=== PATIENT | female | born 1945 | race Caucasian/White ===

== ENCOUNTER → 2018-09-08 | Outpatient (CLI) | payer MEDICARE, SELFPAY ==
[2018-09-08 12:38] LABS: Cholesterol 175 mg/dL (200); High Density Lipoprotein 69 mg/dL; Triglycerides 88 mg/dL; Very Low Density Lipoprotein 18 mg/dL (5-40)
== END | disposition home or self-care (01) ==
LOC: LAB.FUTURE 08:09
PROVIDERS: Family Provider Family Medicine; PCP Family Medicine; Visit Provider Family Medicine
DX: E78.5 Hyperlipidemia, unspecified (principal)
CPT/HCPCS: 36415; 80061

== ENCOUNTER 2020-02-23 09:00 | Outpatient (RCR) | payer MEDICARE, SELFPAY | END 2020-02-23 23:59 | LOC: IMMUN 09:00 | PROVIDERS: PCP Family Medicine; Visit Provider Family Medicine | DX: Z23 Encounter for immunization (principal) | CPT/HCPCS: 0011A; 0012A; 91301 ==

== ENCOUNTER → 2020-11-28 07:49 | Outpatient (CLI) | payer MEDICARE, SELFPAY ==
--- NOTE | 2020-11-28 08:05 | VDLE_ITS ---
Reason For Study: chronic venous insufficiency RIGHT CFV is compressible, spontaneous, phasic, competent and demonstrates normal augmentation. FV is compressible, spontaneous, phasic, competent and demonstrates normal augmentation. POP V is compressible, spontaneous, phasic, competent and demonstrates normal augmentation. T/P Trunk is compressible. PTV is compressible. RT PerV is compressible. GSV and SSV are occluded S/P Venoseal. Soleus V is noncompressible. Procedure This is a venous duplex using B-mode, color flow and spectral Doppler. Exam performed in department. The exam was abbreviated due to the COVID 19 protocol. The exam was diagnostic. A preliminary report was called and/or faxed to Dr. Benitez. VL/Venous Duplex US, Unilateral Interpretation Summary Acute deep vein thrombosis is noted in the right soleus vein. The remainder of the right lower extremity deep venous system is patent and compressible. Valvular competence ap pears intact within the proximal deep venous system on the right . The right great saphenous vein a nd small saphenous vein are occluded, consistent with a recent endovenous ablation procedure. Ordering Physician: Julián Benitez Performed By: Jori Walden RVT
== END ==
PROVIDERS: PCP Family Medicine; Referring Provider Surgery; Visit Provider Surgery
DX: M79.661 Pain in right lower leg (principal)
CPT/HCPCS: 93971

== ENCOUNTER → 2020-12-07 14:02 | Outpatient (CLI) | payer MEDICARE, SELFPAY ==
--- NOTE | 2020-12-07 14:06 | VDLE_ITS ---
Reason For Study: DVT (RLE SOLEUS V) RIGHT CFV is compressible, spontaneous, phasic, competent and demonstrates normal augmentation. FV is compressible, spontaneous, phasic, competent and demonstrates normal augmentation. POP V is compressible, spontaneous, phasic, competent and demonstrates normal augmentation. T/P Trunk is compressible. PTV is compressible. RT PerV is compressible. GSV and SSV (seen in image #15 & #16) are occluded S/P Venoseal. Soleus V appears compressible. Procedure This is a venous duplex using B-mode, color flow and spectral Doppler. Exam performed in department. The exam was diagnostic. A preliminary report was called and/or faxed to Dr. Benitez @ 2:50 pm. VL/Venous Duplex US, Unilateral Interpretation Summary Deep veins of the right lower extremity are patent and compressible segmentally . There is no evidence of right lower extremity deep vein thrombosis. Valvular competence jael ears intact within the proximal deep venous system on the right . The right great saphenous vein a nd small saphenous vein are occluded, consistent with a recent VenaSeal closure procedure. Ordering Physician: Julián Benitez Referring Physician: Frederick Jose Performed By: Lidia Cooper, RYLAN, RVT
== END ==
PROVIDERS: PCP Family Medicine; Referring Provider Surgery; Visit Provider Surgery
DX: I82.4Z1 Acute embolism and thrombosis of unspecified deep veins of right distal lower extremity (principal)
CPT/HCPCS: 93971

== ENCOUNTER → 2021-10-20 | Outpatient (CLI) | payer MEDICARE, SELFPAY ==
[2021-10-20 15:11] LABS: Absolute Lymphocyte Count 1.89 X10^3/uL (0.83-4.51); Absolute Neutrophil Count 3.8 X10^3/uL (2.0-7.7); Basophil# 0.05 X10^3/uL; Basophil% 0.8 % (0-1); Eosinophil# 0.09 X10^3/uL; Eosinophils% 1.4 % (0-5); Hematocrit 41.6 % (37-47); Hemoglobin 13.1 g/dL (12.0-15.0); Lymphocyte # 1.89 X10^3/ul (0.83-4.51); Mean Corp Hgb Conc 31.5 g/dL (32-36); Mean Corpuscular Hgb 28.5 pg (27.0-32.0); Mean Corpuscular Volume 90.6 fL (81-99); Mean Platelet Vol. 10.8 fl (6.2-12.0); Monocyte# 0.66 X10^3/uL; Monocyte% 10.1 % (0-10); NRBC Flagged by Analyzer 0 % (0-5); Neutrophil # 3.82 X10^3/uL (2.7-7.7); Neutrophil % 58.5 % (47-70); Platelet Count 350 K/mm3 (150-450); RBC Distribution Width CV 12.4 % (11.6-14.6); RBC Distribution Width SD 41.1 fl (35.1-43.9); Red Blood Count 4.59 M/mm3 (4.2-5.4); White Blood Count 6.5 K/mm3 (4.4-11.0)
[2021-10-20 15:33] LABS: ALB/GLOB Ratio 1.1 RATIO (0.9-2.4); AST(SGOT) 16 U/L (15-37); Alanine Aminotransfer ALT/SGPT 21 U/L (13-56); Albumin, Serum 3.8 g/dL (3.2-5.0); Alkaline Phosphatase 89 U/L (45-117); Anion Gap 5 (5-15); BUN 12 mg/dL (7-18); BUN/Creat Ratio 14.8 RATIO (10-20); Calcium,Total 8.7 mg/dL (8.5-10.1); Chloride 106 mmol/L (98-107); Cholesterol 202 mg/dL (200); Creatinine, Serum 0.81 mg/dL (0.55-1.02); EST Glomerular Filtration Rate 73 mL/min (>60); Est Glom Filt Rate - Afr Amer 88 mL/min (>60); Globulin 3.5 g/dL (2.2-4.2); Glucose 102 mg/dL (74-106); High Density Lipoprotein 87 mg/dL; Potassium 4.2 mmol/L (3.5-5.1); Protein, Total 7.3 g/dL (6.4-8.2); Sodium Level 139 mmol/L (136-145); Triglycerides 98 mg/dL; Very Low Density Lipoprotein 20 mg/dL (5-40)
== END | disposition home or self-care (01) ==
LOC: LAB 14:42
PROVIDERS: PCP Family Medicine; Visit Provider Family Medicine
DX: Z00.00 Encounter for general adult medical examination without abnormal findings (principal); E78.5 Hyperlipidemia, unspecified; G43.109 Migraine with aura, not intractable, without status migrainosus
CPT/HCPCS: 36415; 80053; 80061; 85025

== ENCOUNTER 2021-10-28 18:09 | Emergency (ER) | payer MEDICARE, SELFPAY ==
[2021-10-28 18:10] VITALS: BP 171/89; PULSE 63; RESP 16; TEMP 36.7; O2SAT 100; BMI 22.3
[2021-10-28 18:33] VITALS: BP 184/93; PULSE 93; RESP 12; O2SAT 98
[2021-10-28 18:34] VITALS: BP 184/93
--- NOTE | 2021-10-28 18:45 | EDS_ITS ---
HPI History of Present Illness Chief Complaint: Hypertension Informant: patient Narrative Narrative: Patient comes in complaining of blood pressure being elevated today. She is got readings anywhere from 148 to about 177. Triage note says headache. But she states she does not have a headache. She feels like she has a little bit of congestion and allergies. No headache. No visual changes. No numbness tingling weakness. No nausea vomiting chest pain shortness of breath or lightheadedness. She feels normal state of health. She actually went out for a walk with the dogs and felt normally there. She does not have a history of blood pressure. However, she states that she is kind of been off of a diet recently. She switched to an extremely healthy diet several years ago when her had a heart attack. She has been cheating recently. She has had cupcake. She had glass of wine. She was eating salty foods for the last couple days. These are not things that she normally eats. She was just seen by her primary physician and had blood work done within the last 2 weeks. She states she feels fine but she was concerned that she got those blood pressure readings. She has no chronic medical conditions No medications that she takes No allergies No recent surgeries Lives with non-smoker [facility] Medical History no medical history Allergy/AdvReac Type Severity Reaction Status Date / Time No Known Allergies Allergy Verified 10/28/21 18:14 Social History Smoking Status: Never smoker ROS ROS ED Constitutional Constitutional ED: Denies chills or fever(s) Eyes Eyes: Denies blurry vision, change in vision or diplopia ENT ENT ED: Denies rhinorrhea or sore throat Cardiovascular Cardiovascular: Denies chest pain or racing heartbeat Respiratory/Chest Respiratory/Chest: Denies cough or dyspnea Gastrointestinal Gastrointestinal: Denies nausea or vomiting Genitourinary Genitourinary ED: Denies dysuria or urinary frequency Musculoskeletal Musculoskeletal: Denies arthralgias or myalgias Integumentary Denies rash Neurologic Neurologic: Denies headache(s), paresthesias or weakness Endocrine Endocrinology: Denies polyuria Hematologic/Lymphatic Hematologic/Lymphatic: Denies easy bleeding or easy bruising Allergic/Immunologic Allergic/Immunologic ED: Denies urticaria EXAM Physical Exam Const Vital Signs: 10/28/21 18:10 10/28/21 18:33 10/28/21 18:33 Temperature 98.1 F Temperature Source Temporal Pulse Rate 63 93 Respiratory Rate 16 12 Respiratory Effort Normal Non-Labored Respiratory Pattern Normal Blood Pressure 171/89 H 184/93 H Blood Pressure Mean 116 123 Pulse Ox 100 98 Oxygen Delivery Method Room Air 10/28/21 18:34 Temperature Temperature Source Pulse Rate Respiratory Rate Respiratory Effort Respiratory Pattern Blood Pressure 184/93 H Blood Pressure Mean 123 Pulse Ox Oxygen Delivery Method Positive well nourished and well developed General Appearance ED: well developed and NAD; Negative for pallor HEENT Reports moist mucous membranes HEENT Narrative: No temporal artery tenderness. Eyes PERRL and EOMs intact bilaterally General Eye ED: Negative for scleral icterus Neck supple and no JVD Chest Wall inspection of chest normal Resp normal respiratory effort and clear to auscultation bilaterally Auscultation: Negative for rales Cardio regular rate, regular rhythm and no murmurs GI normal to inspection, nondistended, normoactive bowel sounds and non-tender GI Narrative: I do not hear any bruits in the abdomen. Palpation: soft Back/Spine no CVA tenderness Extremity normal to inspection General Extremety ED: Negative for edema or tenderness General Extremity: Negative for edema Neuro oriented x3 and no sensory deficits noted Motor Exam: strength 5/5 throughout Psych mental status grossly normal Skin no rashes or lesions noted General Skin Exam: Negative for jaundice or pallor MDM MDM MDM Narrative Medical decision making narrative: Patient has asymptomatic hypertension readings. This may be related to her diet and activity. I explained that with her elevations and lack of symptoms she really does not need acute treatment. Statistically she has about a 30 to 35% chance of needing therapy. Considering her age, I think this might be slightly higher. But this is a new phenomenon. I do not think we need to acutely treat this. She will get a blood pressure cuff and check it twice a day and follow-up with her physician. I was able to access her blood work that was done 8 days ago. She had essentially normal CBC electrolytes. Liver function tests were normal other than mild elevation in the bilirubin to 1.2. She also has some slight elevation of her total cholesterol but HDL was actually quite high. I do not think blood work needs to be repeated today. I think it is very important that she gets follow-up. I think the most important part of this visit is repeat checks at home and follow-up this coming week. If she develops any specific symptoms which we talked about she should return. Discharge Plan Triage Chief Complaint: Hypertension ED Provider: Junito Hayes Dx/Rx/DC Orders Clinical Impression: Elevated blood pressure reading Instructions: ED Hypertension, To Be Confirmed Primary Care Provider: Frederick Jose Referrals: Frederick Jose MD [Primary Care Provider] - 3-5 Days Disposition Disposition: Home, Self Care
[2021-10-28 19:02] VITALS: BP 174/96; PULSE 58; RESP 14
== END 2021-10-28 19:03 | disposition home or self-care (01) ==
PROVIDERS: Emergency Provider Emergency Medicine; PCP Family Medicine; Visit Provider Emergency Medicine
DX: R03.0 Elevated blood-pressure reading, without diagnosis of hypertension (principal)
CPT/HCPCS: 99282

== ENCOUNTER 2022-05-04 14:30 | Outpatient (RCR) | payer MEDICARE, SELFPAY ==
--- NOTE | 2022-03-22 12:59 | HP.PTEVAL_ITS ---
Patient's Visit Information RAIMUNDO BOBBY is a 76 year old F referred to Physical Therapy by GERSON Freedman with a diagnosis of STRAIN OF UNSPECIFIED MUSCLE AND TENDON ,LEFT LEG, EFFUSION LEFT KNEE. Date of Evaluation: 03/22/22 Physical Therapist: Shelton Flynn, PT, Cert MDT, OCS - Visit Plan Frequency: 2x /Week Duration: 4 Weeks Plan: PT INTERVETIONS ROM/FLEXABLITY ,QUADS/HAMS/HIPS STRENGHENING ,FUNCTIONAL STRENGTHENING ,AND MODALTIES PRN - Subjective This 76 y/o female presents to physical therapy left knee pain. Patient developed insidious onset of left knee pain ,no injury. Maybe inactivity. Patient seen DR laura Steriod pack and and x-rays showed mod arthrosis posterior. Patient has h/o THR 2011. Patient located global patella. Described as ache and sharp pain. Aggravating factors walking ,kneeling ,stairs squatting. Alleviating factors rest and sitting. Patient had edema in knee but improving. Initially ,had difficulty with sleeping but better now. Denies paresthesia/tingling. Patient pain affects QOL and function walking/standing and ADLS'. Goals no pain. SOCIAL: . VOCATION: retired Teacher - Pain Left Knee Pain Intensity (Out of 10): 2 Pain Intensity Range: 10 - Objective POSTURE: mild forward posture. GAIT: reciprocal pattern. PALAPATION: tender patella. EDEMA: absent. AROM: 10-135 degrees supine knee flexion crepitus patella. MMT( peak force) : quads 19.7 ,hams 21.2 ,hip flexion 18.8,hip abduction 13.3. STAIRS: one step at time with rails descending. - Special Tests L Knee Deandre - Meniscus: Negative L Knee Apley - Meniscus: Negative L Knee Valgus - MCL: Negative L Knee Varus - LCL: Negative L Knee Patellar Apprehension - PFS: Positive - Balance/Special Test Scores Lower Extremity Functional Score: 33 - Goals Goal 1:: Patient to be I with HEP for knee Goal Time Frame: 4-6 Weeks Goal 2:: Patient to demonstrate by 50% or > to improve function and walking with less pain Goal Time Frame: 4-6 Weeks Goal 3:: Patient improve extension by 5 degrees to improve function Goal Time Frame: 4-6 Weeks Goal 4:: Patient to improve peak force of quads/hams/hip by 5 points to improve function Goal Time Frame: 4-6 Weeks Goal 5:: Patient to improve LFES score by 5 points or > to improve QOL Goal Time Frame: 4-6 Weeks - Rehabilitation Potential Physical Therapy Diagnosis: Patient has left knee pain with with mod arthrosis posterior knee patella with decrease ROM ,weakness and pain with functional activities. thus benefit from skilled PT Rehabilitation Potential: Good - Anticipated Interventions Patient/Client Instruction: Educate patient on: Condition, Plan of Care For the Purpose of:: To decrease pain, To decrease swelling/inflammation, To improve nutrient delivery to tissue, To increase oxygenation perfusion, To improve muscle performance and motor function, To increase tolerance to activity/condition/position, To improve ability of physical actions for home/community/work/leisure, To improve health of tissue, To decrease soft tissue restriction, To increase flexibility/ROM, To prevent re-injury Therapeutic Exercise to Include: Strength training, Flexibilty training, Passive ROM, Active ROM For the Purpose of:: To decrease pain, To increase ROM, To improve muscle performance and motor function, To increase tolerance to activity/co ndition/position, To improve ability of physical actions for home/community/work/leisure, To improve health of tissue, To decrease soft tissue restriction, To increase flexibility/ROM, To improve endurance TENS: Yes IF ES: Yes Cryotherapy (ice pack, ice massage): Yes Thermo therapy (hot pack): Yes Ultrasound (thermal/non thermal): Yes For the Purpose of:: To decrease pain, To increase ROM, To improve nutrient delivery to tissue, To increase oxygenation perfusion, To improve health of tissue, To decrease soft tissue restriction Thank you for the opportunity to evaluate your patient. For Medicare and Medicare HMO plans, please review the plan of care and approve it. It will need to be FAXED BACK to us at [phone] for Medicare purposes. For Medicare only, by signing this I certify the plan of care. Please let me know if there are questions or concerns regarding this plan of care. Physician Signature: Date:
--- NOTE | 2022-05-04 15:02 | HP.PTDCSUM ---
It has been my pleasure to treat RAIMUNDO BOBBY referred by GERSON Freedman, with the diagnosis of STRAIN OF UNSPECIFIED MUSCLE AND TENDON ,LEFT LEG, EFFUSION LEFT KNEE for a total of 11 visit(s). Discharge Date: 05/04/22 Please see the following information for a summary of their discharge status. Subjective: Ready for d/c Left Knee Pain Intensity (Out of 10): 0 % Improvement: 80 Objective/Function: POSTURE: WFL. GAIT: ambulates with knee slight flexes reciprocal. AROM: 3-130 DEGFREES. MMT: 4/5 QUADS/HAMS Goal 1:: Patient to be I with HEP for knee Goal Progress: Goal Met Goal 2:: Patient to demonstrate by 50% or > to improve function and walking with less pain Goal Progress: Goal Met Goal 3:: Patient improve extension by 5 degrees to improve function Goal Progress: Goal Met Goal 4:: Patient to improve peak force of quads/hams/hip by 5 points to improve function Goal 5:: Patient to improve LFES score by 5 points or > to improve QOL Goal Progress: Goal Met Plan: D/C Discharge Comments: HEP If there are questions or concerns regarding this patient's physical therapy, please feel free to call me at [phone]. Thank you for the referral of this patient. Sincerely, Shelton Flynn PT, Cert MDT, OCS Balance/Gait/Functional tests - Balance/Special Test Scores Lower Extremity Functional Score: 60
== END 2022-05-04 19:00 | disposition home or self-care (01) ==
LOC: PT 14:30
PROVIDERS: PCP Family Medicine; Referring Provider Physician Assistant Surgical; Visit Provider Physician Assistant Surgical
DX: S86.912D Strain of unspecified muscle(s) and tendon(s) at lower leg level, left leg, subsequent encounter
CPT/HCPCS: 97110; 97162

== ENCOUNTER → 2024-01-30 | Outpatient (CLI) | payer MEDICARE, SELFPAY ==
[2024-01-30 17:37] LABS: Absolute Lymphocyte Count 1.65 X10^3/uL (0.83-4.51); Absolute Neutrophil Count 4.2 X10^3/uL (2.0-7.7); Basophil# 0.05 X10^3/uL; Basophil% 0.8 % (0-1); Eosinophil# 0.11 X10^3/uL; Eosinophils% 1.7 % (0-5); Hemoglobin 12.8 g/dL (12.0-15.0); Lymphocyte # 1.65 X10^3/ul (0.83-4.51); Lymphocyte % 25.1 % (19-41); Mean Corpuscular Hgb 28.4 pg (27.0-32.0); Mean Corpuscular Volume 88.9 fL (81-99); Mean Platelet Vol. 11.6 fl (6.2-12.0); Monocyte# 0.59 X10^3/uL; NRBC Flagged by Analyzer 0 % (0-5); Neutrophil # 4.16 X10^3/uL (2.7-7.7); Neutrophil % 63.1 % (47-70); Platelet Count 314 K/mm3 (150-450); RBC Distribution Width CV 12.5 % (11.6-14.6); RBC Distribution Width SD 41.1 fl (35.1-43.9); White Blood Count 6.6 K/mm3 (4.4-11.0)
[2024-01-30 17:57] LABS: ALB/GLOB Ratio 0.9 RATIO (0.9-2.4); AST(SGOT) 17 U/L (15-37); Alanine Aminotransfer ALT/SGPT 17 U/L (13-56); Albumin, Serum 3.5 g/dL (3.2-5.0); Alkaline Phosphatase 101 U/L (45-117); Anion Gap 3 (5-15); BUN 16 mg/dL (7-18); CRP < 2.90 mg/L (0.0-3.0); Calcium,Total 9.3 mg/dL (8.5-10.1); Chloride 106 mmol/L (98-107); Cholesterol 206 mg/dL (200); Creatinine, Serum 1.23 mg/dL (0.55-1.02); EST Glomerular Filtration Rate 45 mL/min (>60); Est Glom Filt Rate - Afr Amer 54 mL/min (>60); Globulin 3.8 g/dL (2.2-4.2); Glucose 99 mg/dL (74-106); High Density Lipoprotein 95 mg/dL; Potassium 3.2 mmol/L (3.5-5.1); Protein, Total 7.3 g/dL (6.4-8.2); Sodium Level 140 mmol/L (136-145); Triglycerides 58 mg/dL; Very Low Density Lipoprotein 12 mg/dL (5-40)
[2024-02-04 13:07] LABS: Estrogen, Total, Serum 36 pg/mL (40-244)
== END | disposition home or self-care (01) ==
PROVIDERS: PCP Family Medicine; Referring Provider Family Medicine; Visit Provider Family Medicine
DX: M16.9 Osteoarthritis of hip, unspecified (principal); E78.2 Mixed hyperlipidemia; R10.9 Unspecified abdominal pain; R53.83 Other fatigue
CPT/HCPCS: 36415; 80053; 80061; 82306; 82672; 84443; 85025; 86140

== ENCOUNTER → 2024-02-14 | Outpatient (CLI) | payer MEDICARE, SELFPAY ==
[2024-02-14 15:53] LABS: Anion Gap 3 (5-15); BUN 18 mg/dL (7-18); Calcium,Total 8.8 mg/dL (8.5-10.1); Chloride 108 mmol/L (98-107); EST Glomerular Filtration Rate 64 mL/min (>60); Est Glom Filt Rate - Afr Amer 78 mL/min (>60); Glucose 90 mg/dL (74-106); Potassium 3.5 mmol/L (3.5-5.1); Sodium Level 140 mmol/L (136-145)
== END | disposition home or self-care (01) ==
LOC: MTLAB 13:57
PROVIDERS: PCP Family Medicine; Referring Provider Family Medicine; Visit Provider Family Medicine
DX: E87.6 Hypokalemia (principal)
CPT/HCPCS: 36415; 80048

== ENCOUNTER → 2024-03-05 | Outpatient (CLI) | payer MEDICARE, SELFPAY ==
[2024-03-05 10:24] LABS: Potassium 3.6 mmol/L (3.5-5.1)
== END | disposition home or self-care (01) ==
LOC: MTLAB 08:09
PROVIDERS: PCP Family Medicine; Referring Provider Family Medicine; Visit Provider Family Medicine
DX: K52.9 Noninfective gastroenteritis and colitis, unspecified (principal); E87.6 Hypokalemia
CPT/HCPCS: 36415; 84132; 87506

== ENCOUNTER → 2024-03-18 | Outpatient (CLI) | payer MEDICARE, SELFPAY ==
[2024-03-18 11:21] LABS: Erythrocyte Sedimentation Rate 4 mm/hr (0-30)
[2024-03-18 11:50] LABS: CRP < 2.90 mg/L (0.0-3.0)
[2024-03-19 15:07] LABS: Endomysial Antibody IgA Negative (Negative); Immunoglobulin A 410 mg/dL (64-422); t-Transglutaminase IgA <2 U/mL (0-3)
[2024-03-23 12:07] LABS: Beef <0.10 kU/L (Class 0); Chocolate <0.10 kU/L (Class 0); Codfish <0.10 kU/L (Class 0); Corn 0.13 kU/L (Class 0/I); Egg, Whole 0.38 kU/L (Class I); Milk (Cow) <0.10 kU/L (Class 0); Mussels <0.10 kU/L (Class 0); Peanut 0.19 kU/L (Class 0/I); Pork <0.10 kU/L (Class 0); Salmon <0.10 kU/L (Class 0); Shrimp <0.10 kU/L (Class 0); Soybean <0.10 kU/L (Class 0); Tuna <0.10 kU/L (Class 0); Wheat 0.19 kU/L (Class 0/I)
== END | disposition home or self-care (01) ==
LOC: LAB 10:35
PROVIDERS: PCP Family Medicine; Referring Provider Student in an Organized Health Care Education/Training Program; Visit Provider Student in an Organized Health Care Education/Training Program
DX: R19.5 Other fecal abnormalities (principal)
CPT/HCPCS: 36415; 82784; 83516; 85652; 86003; 86005; 86140; 86255; 87493

== ENCOUNTER → 2024-03-19 | Outpatient (CLI) | payer MEDICARE, SELFPAY ==
[2024-03-22 02:06] LABS: Calprotectin, Stool 22 ug/g (0-120)
[2024-03-23 01:07] LABS: Pancreatic Elastase, Fecal 534 (>200)
== END | disposition home or self-care (01) ==
LOC: LABSPEC 11:16
PROVIDERS: PCP Family Medicine; Referring Provider Student in an Organized Health Care Education/Training Program; Visit Provider Student in an Organized Health Care Education/Training Program
DX: R19.5 Other fecal abnormalities (principal)
CPT/HCPCS: 82653; 83993; 87177; 87209; 87329

== ENCOUNTER → 2024-07-28 | Outpatient (CLI) | payer MEDICARE, SELFPAY ==
--- OUTSIDE RECORDS SUMMARY | 2024-07-28 10:23 | XMS RPT_ITS | CCD ---
Author Organization [facility] CliniSyde Care Team Providers Care Garnishment Specialist Name Role Phone Dr. Frederick Jose Primary Care Provider Dr. Frederick Jose Referring Provider GERSON Turcios Attending Provider Dr. Chester Oro Attending Provider Frederick Jose MD Unavailable Jake Villanueva DO Primary Care Provider SRINIVASA GARZA Attending Unavailable , Nini Referring Unavailable JAKE VILLANUEVA Primary Care Unavailable SRINIVASA GARZA Referring Unavailable Nini Morales Attending Unavailable JAKE VILLANUEVA Primary Care Unavailable SRINIVASA GARZA Attending Unavailable CECI VALDES Primary Care Unavailable July, Chalon Primary Care Unavailable Atanasov, Julieta Attending Unavailable July, Chalon Referring Unavailable AtanasovJulieta Attending Unavailable July, Chalon Primary Care Unavailable July, Chalon Referring Unavailable July, Chalon Primary Care Unavailable Gilberto Walsh Attending Unavailable July, Chalon Referring Unavailable July, Chalon Referring Unavailable July, Chalon Primary Care Unavailable July, Chalon Attending Unavailable Atanasov, Julieta Attending Unavailable Atanasov, Julieta Referring Unavailable July, Chalon Primary Care Unavailable Atanasov, Julieta Attending Unavailable Atanasov, Julieta Referring Unavailable July, Chalon Primary Care Unavailable July, Chalon Primary Care Unavailable July, Chalon Attending Unavailable July, Chalon Referring Unavailable July, Chalon Referring Unavailable July, Chalon Primary Care Unavailable July, Chalon Attending Unavailable July, Chalon Primary Care Unavailable Atanasov, Julieta Attending Unavailable July, Chalon Referring Unavailable Allergies Allergy Classification Reported Allergen(s) Allergy Type Date of Onset Reaction(s) Facility (1 source) Lactose Drug Allergy 3 Diarrhea [facility] (4 sources) Lactase; Translations: [LACTASE] Drug Allergy 3 GI Upset [facility] (4 sources) POISON HUBERT EXTRACT; Translations: [POISON HUBERT] Drug Allergy 5 Rash [facility] Work Phone: (3 sources) hair dye [Other] Propensity to adverse reactions 6 [facility] Work Phone: (1 source) Milk; Translations: [MILK] Propensity to adverse reactions to food (disorder) 8 [facility] Repository (1 source) OTHER; Translations: [OTHER] Propensity to adverse reactions (disorder) 6 [facility] Repository (1 source) Lactose Drug Allergy 5 [facility] Repository Medications Current Medications Medication Drug Class(es) Dates Sig (Normalized) Sig (Original) Glucosamine-Chondroi ti-Hrb#270 (Cosamin Asu (With Akba)) 500 mg-116.7 mg-133.3 mg capsule (1 source) Start: 03-16-2022 Glucosamine-Chondro iti-Hrb#270 (Cosamin Asu (With Akba)) 500 mg-116.7 mg-133.3 mg capsule Active CAP PO March 16, 2022 1:00am Completed/Discontinued Medications Medication Drug Class(es) Dates Sig (Normalized) Sig (Original) betamethasone 0.5 mg/ml / clotrimazole 10 mg/ml topical cream (2 sources) Azole Antifungal, Corticosteroid End: 08-21-2022 clotrimazole-beta methasone (LOTRISONE) cream Apply to affected area twice daily. 0 08/21/2022 Discontinued Comment on above: Apply to affected ar ea twice daily. calcium carbonate 1500 mg oral tablet (2 sources) Start: 09-14-2011 End: 08-21-2022 take 1 tablet by mouth twice daily calcium carbonate (CALTRATE) 600 mg calcium (1,500 mg) tab Take 1 tablet by mouth twice daily. 0 09/14/2011 08/21/2022 Discontinued Comment on above: Take 1 tablet by [facility] twice daily. Calcium Carbonate / vitamin D3 (2 sources) End: 08-21-2022 CALCIUM CARBONATE/VITAMIN D3 (VITAMIN D-3 ORAL) Take by mouth. 0 08/21/2022 Discontinued CALCIUM CARBONAT E/VITAMIN D3 (VITAMIN D-3 ORAL) Take by mouth. 0 Active Comment on above: Take by mouth. cyanocobalamin, vitamin B-12, (VITAMIN B12 ORAL) (3 sources) cyanocobalamin, vitamin B-12, (VITAMIN B12 ORAL) Take by mouth. 0 Active Comment on above: Take by mouth. DAILY MULTIVITAMIN TAB (2 sources) Start: 01-26-2005 End: 08-21-2022 DAILY MULTIVITAMIN TAB Take one(1) tablet daily. 0 0 01/26/2005 08/21/2022 Discontinued Start: 01-26-2005 DAILY MULTIVIT ALAN TAB Take one(1) tablet daily. 0 0 01/26/2005 Active Comment on above: Take one(1) tablet d aily. diclofenac sodium 0.01 mg/mg topical gel (2 sources) Nonsteroidal Anti-inflammatory Drug Start: 017 End: diclofenac sodium (VOLTAREN) 1 % topical gel Apply moderate amount to painful areas on hands (2g) up to four times daily as needed. Don't exceed a total of 32g daily. 1 Tube 11 09/21/2016 08/21/2022 Discontinued Comment on above: Apply moderate amoun t to painful areas on hands (2g) up to four times daily as needed. Don't exceed a total of 32g daily. diphenhydrAMINE hydrochloride 25 mg oral capsule (2 sources) Histamine-1 Receptor Antagonist End: take 1 capsule by mouth every six hours as needed diphenhydrAMINE (BENADRYL) 25 mg capsule Take 25 mg by mouth every 6 hours as needed. 0 08/21/2022 Discontinued Comment on above: Take 25 mg by mouth every 6 hours as needed. estradiol 0.1 mg/ml vaginal cream (2 sources) Estrogen End: estradiol (ESTRACE) 0.01 % (0.1 mg/gram) vaginal cream Use vaginally once each week. 0 08/21/2022 Discontinued Comment on above: Use vaginally once e ach week. hydrocortisone 25 mg/ml topical cream (2 sources) Corticosteroid End: hydrocortisone (ANUSOL-HC) 2.5 % rectal cream by RECTAL route twice daily. 0 08/21/2022 Discontinued Comment on above: by RECTAL route twic e daily. MEDICATION, NON-DATABASE (9 sources) MEDICATION, NON-DATABASE Tumeric 0 Active MEDICATION, NON- DATABASE Occuvite 0 Active MEDICATION, NON- DATABASE Cosamin ASU 0 Active Comment on above: Tumeric Occuvite Cosamin ASU methylPREDNISolone 4 mg oral tablet (1 source) Corticosteroid Start: 2022 End: 2022 take 1 tablet by mouth once Methylprednisolone (Medrol (Aaron)) 4 mg tablets,dose pack Discontinued 4 MG PO per package directions 01 08March 16, 2022 1:00am March 22, 2022 1:05am polyethylene glycol 3350 199491 mg / potassium chloride 2970 mg / sodium bicarbonate 6740 mg / sodium chloride 5860 mg / sodium sulfate 82817 mg powder for oral solution (1 source) Osmotic Laxative Start: 2022 End: 2022 peg 3350-Electrolytes (GOLYTELY) 236-22.74-6.74 -5.86 gram suspension Take 4,000 mL by mouth one time only for 1 dose. 1 Each 0 08/21/2022 08/21/2022 Comment on above: Take 4,000 mL by eros th one time only for 1 dose. triamcinolone acetonide 1 mg/ml topical cream (2 sources) Corticosteroid End: 2022 triamcinolone acetonide (KENALOG) 0.1 % cream Apply to affected area twice daily. 0 08/21/2022 Discontinued Comment on above: Apply to affected ar ea twice daily. Zinc (3 sources) ZINC ORAL Take b y mouth. 0 Active Comment on above: Take by mouth. zolpidem tartrate 5 mg oral tablet (2 sources) gamma-Aminobutyric Acid-ergic Agonist End: 2022 take 1 tablet by mouth every twenty-four hours as needed zolpidem (AMBIEN) 5 mg tablet Take 5 mg by mouth at bedtime as needed. 0 08/21/2022 Discontinued Comment on above: Take 5 mg by mouth a t bedtime as needed. Problems Active Problems Problem Classification Problem Date Documented Da te Episodic/Chronic Disorders of lipid metabolism (3 sources) Mixed hyperlipidemia; Translations: [Mixed hyperlipidemia] Onset: 05-26-2008 11-07-2009 Chronic Essential hypertension (3 sources) Benign essential hypertension; Translations: [Essential (primary) hypertension] Onset: 05-26-2008 11-07-2009 Chronic Fluid and electrolyte disorders (1 source) Hypokalemia; Translations: [Hypokalemia] Onset: 03-07-2024 Episodic Hemorrhoids (5 sources) Internal hemorrhoids grade III; Translations: [Third degree hemorrhoids] Episodic Menopausal disorders (3 sources) Menopausal symptom; Translations: [Menopausal and female climacteric states] 11-07-2009 Chronic Noninfectious gastroenteritis (1 source) Noninfective gastroenteritis and colitis, unspecified; Translations: [Noninfective gastroenteritis and colitis, unspecified] Onset: 03-25-2024 Episodic Osteoarthritis (4 sources) Degenerative joint disease involving multiple joints; Translations: [Polyosteoarthritis, unspecified] Onset: 05-26-2008 02-06-2021 Chronic Other circulatory disease (2 sources) Elevated blood pressure; Translations: [Elevated blood-pressure reading, without diagnosis of hypertension] 11-05-2021 Episodic Other gastrointestinal disorders (1 source) Other fecal abnormalities; Translations: [Other fecal abnormalities] Onset: 04-03-2024 Episodic Other non-traumatic joint disorders (1 source) Swelling of knee joint; Translations: [Effusion, left knee] 03-16-2022 Episodic Other non-traumatic joint disorders (1 source) Effusion, left knee; Translations: [Effusion of joint, lower leg] 03-16-2022 Episodic Other screening for suspected conditions (not mental disorders or infectious disease) (3 sources) Patient encounter status; Translations: [Encounter for screening for malignant neoplasm of colon] Onset: 10-02-2022 08-24-2022 Episodic Other upper respiratory disease (3 sources) Allergic rhinitis; Translations: [Allergic rhinitis, unspecified] Onset: 05-26-2008 11-07-2009 Chronic Sprains and strains (2 sources) Strain of muscle of lower limb; Translations: [Strain of unspecified muscle(s) and tendon(s) at lower leg level, left leg, initial encounter] 03-16-2022 Episodic Past or Other Problems Problem Classification Problem Date Documented Date Episodic/Chronic Residual codes; unclassified (3 sources) Family history of ischemic heart disease and other diseases of the circulatory system; Translations: [Family history of other cardiovascular diseases] Onset: 05-26-2008 11-07-2009 Episodic Varicose veins of lower extremity (3 sources) Venous varices; Translations: [Asymptomatic varicose veins of unspecified lower extremity] Onset: 05-26-2008 11-07-2009 Episodic Results Test Name Value Interpretation Reference Range Facility Gastroenterology Visit Repor ton 04-22-2024 Gastroenterology Visit Report [facility] [address] [place] [address] OFFICE VISIT Date of Service: 04/22/24 MR#: [id number] Acct: [id number] Name: RAIMUNDO BOBBY Rep #: [id number] : 1945 Provider: GERSON Pulido Age/Sex: 78/F Location: [facility] Status: Signed Intake Vital Signs 03/12/24 12:28 Height 5 ft 4 in Intake Visit Reasons: 3 WK FU Chief Complaint: loose stools Allergies lactose Allergy (Verified 03/12/24 12:37) Diarrhea Patient : No Have you fallen in the past year?: No Nurse's Note: OV 04.22.24 Pt here for a f/u and reports diarrhea, gas, bloating, and trouble swallowing. Pt reports she was doing well when she was off dairy for awhile. She recently reintroduced dairy and then had a change in bm. Pt continues taking colestipol daily. [facility] Medical History (Updated 04/22/24 @ 15:42 by GERSON Pulido) Knee pain Hemorrhoids Gout Surgical History (Updated 03/16/22 @ 09:49 by Eugenia Martinez) History of hip replacement Family History (Updated 03/16/22 @ 09:46 by Eugenia Martinez) Other Heart disease Social History Smoking Status: Never smoker HPI HPI Chief Complaint: loose stools Details: RAIMUNDO BOBBY, is a 78 F who presents to the office today for f/u. BGI established 2.5.25 with complaints of loose stool over the past year. Up to 5 episodes per day with no formed stools in between. Diary may be a trigger. BRAT diet helpful. Colonoscopy 10.02.22; hemorrhoids on perianal exam, one diminutive polyp in the descending colon, removed. Diverticulosis in the sigmoid colon. External and Internal hemorrhoids. tubular adenoma Biochemical work up03.18.24; food allergy wheat .19 H, Peanut .19 H, Egg H .38, corn H .13, CRP wnl, ESR wnl, celiac panel wnl Stool 2.08.05; negative for infection, calprotectin normal, elastase normal Last OV 04.01.24; Pt with continued issues with loose stools. Pt is attemptong to avoid food allergies. Started on Colestipol and reviewed to nutrition. OV 04.22.24 Pt has been slowing adding back in food allergies. She has not been able to identify any triggering foods. She is having sporadic bm's with some days just one and other up to 3. Her bm's are soft and not her normal. She is taking colestipol 1 gram daily and feels this may have helped a little. ROS Const Constitutional: Positive for fatigue; No fever(s) or weight change ENT ENT: Positive for difficulty swallowing Gastro GI: Positive for change in bowel habits, diarrhea, difficulty swallowing and Blood in stool; No abdominal pain, belching, bloating, change in stool character, coffee ground emesis, constipation, cramping, heartburn, feeling full early, excessive flatus, incontinent of stools, Vomiting blood/hematemesis, loose stools, Black,tarry stools, nausea/dyspepsia, pain with swallowing, vomiting or other Musc Musculoskeletal: Positive for joint pain, joint swelling, numbness, tingling and Arthritis Skin Skin: Positive for dry skin and itchy eyes; No yellowing of the eye Neuro Neurology: Positive for numbness and tingling Psych Psychiatric: No anxiety and No depression Endo Endocrine: Positive for fatigue; No weight change Aller/Imm Allergy/Immunologic: Positive for itchy eyes Exam Const General: cooperative and comfortable Nutritional Appearance: average body habitus and well nourished [facility] Head: normal to inspection Ears: hearing grossly normal bilaterally Nose: external nose normal Face and sinus: normal facial exam Eyes General: appearance normal, both eyes and all related structures Neck Neck: normal visual inspection Chest Chest palpation inspection: normal inspection of the chest Resp Effort Inspection: normal respiratory effort Auscultation: Bilateral: Clear to Auscultation GI Inspection: normal to inspection Skin General: no rashes or lesions noted Neuro General: patient alert Extrem General: normal to inspection Psych Affect: normal affect Assessment and Plan Assessment and Plan (1) Loose stools: Status: Acute Plan: This is a 78 yo female pt here today for f/u regarding her loose stools. Work so far has revealed low/indeterminate allergies to corn, egg, peanut, cows milk and wheat. Stool testing has been negative. She has trialed avoidance of these foods without much relief in her soft stools. At her last appointment I started her on colestipol 1 gram daily. She believes this may have helped some. Will increase this ti 2 gram daily and she will f/u in 3 months. If she continues to have these symptoms will consider Xifaxan for IBS-D. She is agreeable to this plan. -Increase colestipol -Consider Xifaxan -f/u in 3 months (2) Food allergy: Status: Acute Medications: Changed (more content not included)... Normal [facility] Gastroenterology Visit Repor ton 04-01-2024 Gastroenterology Visit Report [facility] [address] [place] [address] OFFICE VISIT Date of Service: 04/01/24 MR#: [id number] Acct: [id number] Name: RAIMUNDO BOBBY Rep #: [id number] : 1945 Provider: GERSON Pulido Age/Sex: 78/F Location[place] [facility] [place] Status: Signed Intake Vital Signs 03/12/24 12:28 Height 5 ft 4 in BP 140/70 H Blood Pressure Location Lt brachial Position Sitting Respiration 15 Pulse 61 Pulse Source NIBP Temp 98.1 F Temp Source Oral Pulse Oximetry (%) 96 Oxygen Delivery Method room air Intake Visit Reasons: Test Result Chief Complaint: loose stools Allergies lactose Allergy (Verified 03/12/24 12:37) Diarrhea Medications ???Medication ???Instructions ???Recorded ???Confirmed ???Type Diltiazem 2% / Lidocaine 5% #1 ea 03/18/24 03/18/24 Rx ointment (compound) (Diltiazem 2%/Lidocaine 5% ointment (compound)) colestipol 1 gram tablet 1 g PO ONCE #60 tabs 04/01/2403/14 Rx Patient : No Have you fallen in the past year?: No Nurse's Note: OV 04.01.24 Pt here for f/u and reports she has eliminated supplements she has been taking and foods in her diet that she is sensitive to. Pt has noticed a decrease in loose stools. [facility] Medical History (Updated 03/18/24 @ 10:24 by GERSON Pulido) Knee pain Hemorrhoids Gout Surgical History (Updated 03/16/22 @ 09:49 by Eugenia Martinez) History of hip replacement Family History (Updated 03/16/22 @ 09:46 by Eugenia Martinez) Other Heart disease Social History Smoking Status: Never smoker HPI HPI Chief Complaint: loose stools Details: RAIMUNDO BOBBY, is a 78 F who presents to the office today for f/u. BGI established 2.5.25 with complaints of loose stool over the past year. Up to 5 episodes per day with no formed stools in between. Diary may be a trigger. BRAT diet helpful. Colonoscopy 8.; hemorrhoids on perianal exam, one diminutive polyp in the descending colon, removed. Diverticulosis in the sigmoid colon. External and Internal hemorrhoids. tubular adenoma Biochemical work up2.07.05; food allergy wheat .19 H, Peanut .19 H, Egg H .38, corn H .13, CRP wnl, ESR wnl, celiac panel wnl Stool 2..25; negative for infection, calprotectin normal, elastase normal OV 04.01.24 Pt here today to discuss results of her testing. She has started to cut out some of her food allergies. She feels she might have noticed a slight decrease in her diarrhea. ROS Const Constitutional: No anorexia, fatigue, fever(s), weight change or sleep problems Eyes Eyes: No change in vision ENT ENT: No abnormal hearing, difficulty swallowing, mouth lesions, tongue swelling or throat swelling Resp Respiratory: No cough or shortness of breath Cardio Cardiology: No chest pain at rest, chest pain with exertion, shortness of breath or dyspnea on exertion Gastro GI: Positive for abdominal pain and loose stools; No difficulty swallowing Genitourinary-Female: No difficulty urinating or burning urination Musc Musculoskeletal: No joint pain, joint swelling, muscle weakness or decreased muscle mass Skin Skin: No hair loss in leg, yellowing of the eye, itchy eyes, rash, skin ulcer or skin swelling Neuro Neurology: No abnormal hearing, abnormal movements, confusion, unsteady gait/balance or memory loss Psych Psychiatric: No anxiety, No confusion and No memory loss Endo Endocrine: No fatigue or weight change Aller/Imm Allergy/Immunologic: No itchy eyes, throat swelling or tongue swelling Imtiaz/Lymp Hematologic/Lymphatic : No easy bleeding, easy bruising or enlarged lymph nodes Assessment and Plan Assessment and Plan (1) Loose stools: Status: Acute Plan: This is a 78 yo female pt here today for f/u after testing. Pt initially presented with daily diarrhea. I ordered stool testing and blood work. Stool testing was all negative. Blood work showing some class 0/1 food allergies to corn, peanut, egg and wheat. Pt has been avoiding these for a few days now and has noticed some improvements. I do not think this is the main reason for her diarrhea and I did not recommend she completely remove all of them from her diet. Pt did undergo colonoscopy in 2022 so I do not feel she needs to have one again as stool testing was all normal. I will start her on Colestipol 1 gram daily. -Reviewed results -Start Colestipol 1 gram daily Medications: New colestipol 1 g PO ONCE 60 tabs 2RF Coding Level of Care Code Off vis,est,level 3 Diagnoses Loose stools R19.5 Clinical Quality Measures Falls Risk Screening/Assistive Devices Have you fallen in the past year?: No 04/01/24 5450 Date (more content not included)... Normal [facility] M7400.3302on 03-25-2024 M7400.3302 _ TESTING PERFORMED AT [facility]. ORIGINAL REPORT ON FILE IN LAB CONTAINS ADDITIONAL TEST SITE INFORMATION. Giardia Lamblia EIA NEGATIVE Normal [facility] Comment on above: Performed By: #### M 7400.3302, L7000.0750, M600.5000, L7000.0700 ####[facility] [id number] [place], [place], [id number] Ova and Parasites 8623on OP OVA AND PARASITES EXAM, ROUTINE These results were obtained using wet preparation(s) and trichrome stained smear. This test does not include testing for Crytosporidium parvum, Cyclospora, or Microsporidia. One negative specimen does not rule out the possibility of a parasitic infection. TESTING PERFORMED AT [facility]. ORIGINAL REPORT ON FILE IN LAB CONTAINS ADDITIONAL TEST SITE INFORMATION. Ova/Parasite Exam NO OVA, CYSTS, OR PARASITES FOUND. Normal [facility] Comment on above: Performed By: #### M 7400.3302, L7000.0750, M600.5000, L7000.0700 #### [facility] [address] [place], [place], [address] L5500.0550on 03-23-2024 BEEF <0.10 Normal Class 0 [facility] Comment on above: Performed By: #### L 5500.0550, L3410.2400, L501.6710, L101.9900 #### [facility] [address] [place], [address] CHOCOLATE <0.10 Normal Class 0 [facility] Comment on above: Performed By: #### L 5500.0550, L3410.2400, L501.6710, L101.9900 #### [facility] [address] [place], [address] CODFISH <0.10 Normal Class 0 [facility] Comment on above: Performed By: #### L 5500.0550, L3410.2400, L501.6710, L101.9900 #### [facility] [address] [place], [address] COMMENT Comment Normal . [facility] Comment on above: Result Comment: Simona alfaro of Specific IgE Class Description of Class ----- < 0.10 0 Negative 0.10 - 0.31 0/I Equivocal/Low 0.32 - 0.55 I Low 0.56 - 1.40 II Moderate 1.41 - 3.90 III High 3.91 - 19.00 IV Very High 19.01 - 100.00 V Very High >100.00 Very High Performed By: #### L 5500.0550, L3410.2400, L501.6710, L101.9900 #### [facility] [address] [place], [address] CORN 0.13 kU/L Abnormal Class 0/I [facility] Comment on above: Performed By: #### L 5500.0550, L3410.2400, L501.6710, L101.9900 #### [facility] [address] [place], [address] EGG, WHOLE 0.38 kU/L Abnormal Class I [facility] Comment on above: Result Comment: Perf ormed at: - [facility] [id number] Tobacco Sweeper: Oscar Deluna MD, Phone: [phone] Performed By: #### L 5500.0550, L3410.2400, L501.6710, L101.9900 #### [facility] [address] [place], [address] MILK (COW) <0.10 Normal Class 0 [facility] Comment on above: Performed By: #### L 5500.0550, L3410.2400, L501.6710, L101.9900 #### [facility] [address] [place], [address] MUSSELS <0.10 Normal Class 0 [facility] Comment on above: Performed By: #### L 5500.0550, L3410.2400, L501.6710, L101.9900 #### [facility] [address] [place], [address] PEANUT 0.19 kU/L Abnormal Class 0/I [facility] Comment on above: Performed By: #### L 5500.0550, L3410.2400, L501.6710, L101.9900 #### [facility] [address] [place], [address] PORK <0.10 Normal Class 0 [facility] Comment on above: Performed By: #### L 5500.0550, L3410.2400, L501.6710, L101.9900 #### [facility] [address] [place], [address] SALMON <0.10 Normal Class 0 [facility] Comment on above: Performed By: #### L 5500.0550, L3410.2400, L501.6710, L101.9900 #### [facility] [address] [place], [address] SHRIMP <0.10 Normal Class 0 [facility] [facility] Comment on above: Performed By: #### L 5500.0550, L3410.2400, L501.6710, L101.9900 #### [facility] [address] [place], [address] SOYBEAN <0.10 Normal Class 0 [facility] Comment on above: Performed By: #### L 5500.0550, L3410.2400, L501.6710, L101.9900 #### [facility] [address] [place], [address] TUNA <0.10 Normal Class 0 [facility] Comment on above: Performed By: #### L 5500.0550, L3410.2400, L501.6710, L101.9900 #### [facility] [address] [place], [address] WHEAT 0.19 kU/L Abnormal Class 0/I [facility] Comment on above: Performed By: #### L 5500.0550, L3410.2400, L501.6710, L101.9900 #### [facility] [address] [place], [address] L7000.0750on 03-23-2024 P ELASTASE,FECA 534 Normal >200 [facility] Comment on above: Result Comment: Resu lt Units: ug Elast./g Severe Pancreatic Insufficiency: <100 Moderate Pancreatic Insufficiency: 100 - 200 Normal: >200 Performed at: [address] [id number] Tobacco Sweeper: Oscar Deluna MD, Phone: [phone] Performed By: #### M 7400.3302, L7000.0750, M600.5000, L7000.0700 #### [facility] [address] [place], [place], [id number] Calprotectin, Stoolon [address] 22 ug/g Normal 0-120 [facility] Comment on above: Result Comment: Conc entration Interpretation Follow-Up < 5 - 50 ug/g Normal None >50 -120 ug/g Borderline Re-evaluate in 4-6 weeks >120 ug/g Abnormal Repeat as clinically indicated Performed at: [facility] [address] [id number] Tobacco Sweeper: Oscar Deluna MD, Phone: [phone] Performed By: #### M 7400.3302, L7000.0750, M600.5000, L7000.0700 #### [facility] [address] [place], [place], [id number] Celiac Disease Profileon ENDOMYSIAL IGA Negative Normal Negative [facility] Comment on above: Performed By: #### L 5500.0550, L3410.2400, L501.6710, L101.9900 #### [facility] [address] [place], [place], [id number] IMMUNOGLOB A QN 410 mg/dL Normal 64-422 [facility] Comment on above: Result Comment: Perf ormed at: [facility] [address] [id number] Tobacco Sweeper: Reyes Chi PhD, Phone: [phone] Performed By: #### L 5500.0550, L3410.2400, L501.6710, L101.9900 #### [facility] [address] [place], [place], [address] tTG IGA <2 Normal 0-3 [facility] Comment on above: Result Comment: Nega tive 0 - 3 Weak Positive 4 - 10 Positive >10 Tissue Transglutaminase (tTG) has been identified as the endomysial antigen. Studies have demonstr- ated that endomysial IgA antibodies have over 99% specificity for gluten sensitive enteropathy. Performed By: #### L 5500.0550, L3410.2400, L501.6710, L101.9900 #### [facility] [address] [place], [address] CRPon 03-18-2024 C-REACTIVE PROT < 2.90 Normal 0.0-3.0 [facility] Comment on above: Result Comment: C-Re active Protein (CRP) provides useful information for the diagnosis, therapy and monitoring of inflammatory processes and associated diseases. For the evaluation of Relative Risk for Cardiovascular Disease, a High Sensitivity CRP (HSCRP) should be ordered. Performed By: #### L 5500.0550, L3410.2400, L501.6710, L101.9900 #### [facility] [address] [place], [address] Erythrocyte Sed Rateon 03-18 SED RATE 4 mm/hr Normal 0-30 [facility] Comment on above: Performed By: #### L 5500.0550, L3410.2400, L501.6710, L101.9900 #### [facility] [address] [place], [place], [address] Gastroenterology Visit Repor ton 03-18-2024 Gastroenterology Visit Report [facility] [address] [place] [address] OFFICE VISIT Date of Service: 03/18/24 MR#: [id number] Acct: [id number] Name: RAIMUNDO BOBBY Rep #: [id number] : 1945 Provider: GERSON Pulido Age/Sex: 78/F Location: [facility] Status: Signed Intake Vital Signs 03/12/24 12:28 Height 5 ft 4 in BP 140/70 H Blood Pressure Location Lt brachial Position Sitting Respiration 15 Pulse 61 Pulse Source NIBP Temp 98.1 F Temp Source Oral Pulse Oximetry (%) 96 Oxygen Delivery Method room air Intake Visit Reasons: Irritable bowel syndrome Chief Complaint: loose stools Java Developer Required: No Is patient in pain?: No Allergies lactose Allergy (Verified 03/12/24 12:37) Diarrhea Medications ???Medication ???Instructions ???Recorded ???Confirmed ???Type glucosamine 500 mg-chondroitin cap PO 03/16/22 03/16/22 History 116.7 mg-herbal no.270 133.3 mg capsule (Cosamin ASU (with AKBA)) Diltiazem 2% / Lidocaine 5% #1 ea 03/18/24 03/18/24 Rx ointment (compound) (Diltiazem 2%/Lidocaine 5% ointment (compound)) magnesium 200 mg tablet 200 mg PO QDAY 03/18/24 03/18/24 H istory mecobalamin (vitamin B12) 1,000 1,000 mcg PO QDAY 03/18/24 5 History mcg chewable tablet vwjpbleo-mrw-yrias3 250 mg-dha 90 1 cap PO QAM 03/18/24 03/18/24 Hi story mg-epa 160 fg-pzai-uytx-zeax capsule (Ocuvite Adult 50 Plus) Patient : No Have you fallen in the past year?: No Nurse's Note: OV 03.18.24 Pt here to establish care with [facility]. Pt reports, nausea, vomiting, diarrhea, blood in stools, gas and bloating. Pt has hx hematoids. Reports a plant based diet. Prior colonoscopy and EGD done 2021. No current medications. [facility] Medical History (Updated 03/18/24 @ 10:24 by GERSON Pulido) Knee pain Hemorrhoids Gout Surgical History (Updated 03/16/22 @ 09:49 by Eugenia Martinez) History of hip replacement Family History (Updated 03/16/22 @ 09:46 by Eugenia Martinez) Other Heart disease Social History Smoking Status: Never smoker HPI HPI Chief Complaint: loose stools Details: RAIMUNDO BOBBY, is a 78 F who presents to the office today for establishment with [facility]. Pt has had loose stools progressively over the past year. She does not ever have formed stools. Some days she will have up to 5 episodes of loose stool. SHe has noticed that diary may be a trigger. She has tried lactose free and Lactaid pills but will still have loose stools. Has tried a BRAT diet in the past which does seem to help. SHe will have some abd pain during loose stools but not all the time. She does still have her gallbladder. She is unsure if fatty foods give her loose stools. Her mother did have her gallbladder out. She dose not have regular heartburn or n/v. She did go through a period of taking NSAIDs pretty frequently but has discontinued them at this time. Last colonoscopy was in 2022 with one polyp but no other findings. Colonoscopy 10.02.22; hemorrhoids on perianal exam, one diminutive polyp in the descending colon, removed. Diverticulosis in the sigmoid colon. External and Internal hemorrhoids. tubular adenoma ROS Const Constitutional: Positive for fatigue and weight change; No fever(s) ENT ENT: No difficulty swallowing Gastro GI: Positive for abdominal pain, bloating, diarrhea, excessive flatus, Blood in stool and vomiting; No belching, change in bowel habits, change in stool character, coffee ground emesis, constipation, cramping, heartburn, difficulty swallowing, feeling full early, incontinent of stools, loose stools, Black,tarry stools, nausea/dyspepsia, pain with swallowing or other Musc Musculoskeletal: Positive for joint pain, joint swelling, muscle cramps, numbness, stiffness, tingling and Arthritis Skin Skin: No yellowing of the eye or itchy eyes Neuro Neurology: Positive for numbness and tingling Psych Psychiatric: Positive for anxiety, No depression and Positive for inattentiveness Endo Endocrine: Positive for fatigue and weight change Aller/Imm Allergy/Immunologic: No itchy eyes Imtiaz/Lymp Hematologic/Lymphatic : No easy bleeding or easy bruising Exam Const General: cooperative and comfortable Nutritional Appearance: average body habitus and well nourished [facility] Head: normal to inspection Ears: hearing grossly normal bilaterally Nose: external nose normal Face and sinus: normal facial exam Eyes General: appearance normal, both eyes and all related structures Neck Neck: normal visual inspection Chest Chest palpation inspection: normal inspection of the chest and normal palpation of entire chest wall Resp Effort Inspection: normal respiratory effort Auscultation: Bilater (more content not included)... Normal [facility] Urgent Care Visit Reporton 0 03-12-2024 Urgent Care Visit Report [facility] [address] [place] [address] OFFICE VISIT Date of Service: 03/12/24 MR#: [id number] Acct: [id number] Name: RAIMUNDO BOBBY Rep #: [id number] : 1945 Provider: GERSON Freedman Age/Sex: 78/F Location: [facility] Status: Signed Intake Vital Signs 03/16/22 10:03 03/12/24 12:28 Height 5 ft 4 in 5 ft 4 in BP 140/70 H Blood Pressure Location Lt brachial Position Sitting Respiration 15 Pulse 61 Pulse Source NIBP Temp 98.1 F Temp Source Oral Pulse Oximetry (%) 96 Oxygen Delivery Method room air Intake Visit Reasons: CONERN FOR WAX IN EARS Chief Complaint: ear wax Java Developer Required: No Is patient in pain?: No Allergies lactose Allergy (Verified 03/12/24 12:37) Diarrhea Is last menstrual period known: No Post menopausal: Yes Patient : No Have you fallen in the past year?: No Nurse's Note: believes she may have wax build up in right ear for a few months. denies pain, fever, drainage. [facility] Medical History (Updated 03/12/24 @ 13:23 by Gilberto NIETO, PA) Knee pain Hemorrhoids Gout Surgical History (Updated 03/16/22 @ 09:49 by Eugenia Martinez) History of hip replacement Family History (Updated 03/16/22 @ 09:46 by Eugenia Martinez) Other Heart disease Social History Smoking Status: Never smoker [facility] HPI Chief Complaint: ear wax Details: RAIMUNDO BOBBY, is a 78 F who presents to the office today for concern for possible ear plugged or hearing loss. Patient does state that she has had gradual hearing loss recently and wants to make sure she does not have a wax plug in her ear. No otorrhea. No other associated symptoms or alleviating/aggravati ng factors. ROS Const Constitutional: No other (6 system ROS completed with pertinent findings in the HPI otherwise normal.) Exam Const General: cooperative and healthy appearing HENID Head: normocephalic and atraumatic Ears: external ears normal, TM's normal bilaterally, EAC's normal and hearing grossly impaired on the right Nose: external nose normal Face and sinus: normal facial exam and face symmetric Skin General: no rashes or lesions noted Neuro General: patient alert Psych Appearance: grossly normal Mental Status: mental status grossly normal Coding Level of Care Code Off vis,est,level 3 Diagnoses Hearing loss, right H91.91 Assessment and Plan Assessment and Plan (1) Hearing loss, right: Status: Acute Plan Patient advised to follow-up with audiology for further evaluation and treatment of the hearing loss. Patient verbalized understanding and agreement with all the above. Clinical Quality Measures Falls Risk Screening/Assistive Devices Have you fallen in the past year?: No 03/12/24 1323 Date Gilberto Kirk Signature: Date (if applicable) CC: Normal [facility] ENTERIC PATHOGEN PANEL STOOL on 03-05-2024 EP PANEL Order Date: 02/27/24 Order Info: 625-4 - CUST Normal Reference Range = Not Detected Not detected for Campylobacter group, Salmonella species, Shigella species, Vibrio Group, Yersinia enterocolitica, EHEC (Shiga Toxin 1, Shiga Toxin 2), Norovirus Gl/Gll, and Rotavirus A. Other common stool pathogens are not detected on this panel include: Aeromonas/Plesiomonas or parasites. Order testing for these organisms separately if suspected. This is an amplified DNA test which makes it both specific and sensitive. CAMPYLOBACTER Not Detected Norovirus Not Detected Rotavirus Not Detected Salmonella Not Detected Shiga Toxin Not Detected Shigella sp. Not Detected VIBRIO Not Detected Yersinia Not Detected Normal [facility] Comment on above: Performed By: #### L 501.5600, M100.637 ####[facility] [address] [place], [place], [id number] Potassiumon 03-05-2024 Potassium [Moles/Vol] 3.6 mmol/L Normal 3.5-5.1 [facility] Comment on above: Order Comment: Order Date: 02/27/24Order Info: 2823-3 - K Performed By: #### L 501.5600, M100.637 ####[facility] [address] [place], [address] Basic Metabolic Profile (BMP )on 02-14-2024 BUN/CRE 20.0 RATIO Normal 10-20 [facility] Comment on above: Order Comment: Order Date: 02/07/24Order Info: 666-02 - BMP Performed By: #### L 500.2500 ####[facility] [address] [place], [address] CA,Total 8.8 mg/dL Normal 8.5-10.1 [facility] Comment on above: Order Comment: Order Date: 02/07/24Order Info: 666-02 - BMP Performed By: #### L 500.2500 ####[facility] [address] [place], [address] Chloride [Moles/Vol] 108 mmol/L High 98-107 [facility] Comment on above: Order Comment: Order Date: 02/07/24Order Info: 666-02 - BMP Performed By: #### L 500.2500 ####[facility] [address] [place], [address] CO2 [Moles/Vol] 29.0 mmol/L Normal 21.0-32.0 [facility] Comment on above: Order Comment: Order Date: 02/07/24Order Info: 666-02 - BMP Performed By: #### L 500.2500 ####[facility] [address] [place], [address] Creatinine [Mass/Vol] 0.90 mg/dL Normal 0.55-1.02 [facility] Comment on above: Order Comment: Order Date: 02/07/24Order Info: 666-02 - BMP Result Comment: The validity of the calculated GFR GFRAA in patients over 70 years has not been determined. Clinical correlation is essential. Performed By: #### L 500.2500 ####[facility] [address] [place], [address] EST GFR - AA 78 mL/min Normal >60 [facility] Comment on above: Order Comment: Order Date: 02/07/24Order Info: 666-02 - BMP Result Comment: Afri can Yemeni GFR Calc Performed By: #### L 500.2500 ####[facility] [address] [place], [address] GAP 3 Low 5-15 [facility] Comment on above: Order Comment: Order Date: 02/07/24Order Info: 666-02 - BMP Performed By: #### L 500.2500 ####[facility] [address] [place], [address] GFR/1.73 sq M.predicted among non-blacks MDRD (S/P/Bld) [Vol rate/Area] 64 mL/min/{1.73_m2} Normal >60 [facility] Comment on above: Order Comment: Order Date: 02/07/24Order Info: 666-02 - BMP Result Comment: Non- GFR Calc Performed By: #### L 500.2500 ####[facility] [address] [place], [address] Glucose [Mass/Vol] 90 mg/dL Normal 74-106 [facility] Comment on above: Order Comment: Order Date: 02/07/24Order Info: 666-02 - BMP Performed By: #### L 500.2500 ####[facility] [address] [place], [address] Potassium [Moles/Vol] 3.5 mmol/L Normal 3.5-5.1 [facility] Comment on above: Order Comment: Order Date: 02/07/24Order Info: 666-02 - BMP Performed By: #### L 500.2500 ####[facility] [address] [place], [address] Sodium [Moles/Vol] 140 mmol/L Normal 136-145 [facility] Comment on above: Order Comment: Order Date: 02/07/24Order Info: 0667- - BMP Performed By: #### L 500.2500 ####[facility] [address] [place], [address] Urea nitrogen [Mass/Vol] 18 mg/dL Normal 7-18 [facility] Comment on above: Order Comment: Order Date: 02/07/24Order Info: 0667 - BMP Performed By: #### L 500.2500 ####[facility] [address] [place], [address] Estrogen, Total, Serumon ESTROGENS,TOTAL 36 pg/mL Low 40-244 [facility] Comment on above: Order Comment: N Result Comment: Prep ubertal < 40 Female Cycle: 1-10 Days 16 - 328 11-20 Days 34 - 501 21-30 Days 48 - 350 Post-Menopausal 40 - 244 Performed at: [address] [id number] Tobacco Sweeper: Oscar Deluna MD, Phone: [phone] Performed By: #### L 5503.0200 ####[facility] [address] [place], [address] CBC W/Diff, Automatedon 01-11 Absolute Lymph 1.65 X10 3/uL Normal 0.83-4.51 [facility] Comment on above: Order Comment: Order Date: 01/30/24Order Info: 0184-1 - CBCD Performed By: #### L 501.9520, L506.1000, L100.0100, L501.6710, L500.4100, L500.4050 ####[facility] [address] [place], [place], [address] Absolute Neut 4.2 X10 3/uL Normal 2.0-7.7 [facility] Comment on above: Order Comment: Order Date: 01/30/24Order Info: 018- - CBCD Performed By: #### L 501.9520, L506.1000, L100.0100, L501.6710, L500.4100, L500.4050 ####[facility] [address] [place], [address] Basophils/100 WBC (Bld) 0.8 % Normal 0-1 [facility] Comment on above: Order Comment: Order Date: 01/30/24Order Info: 018- - CBCD Performed By: #### L 501.9520, L506.1000, L100.0100, L501.6710, L500.4100, L500.4050 ####[facility] [address] [place], [address] Eosinophils/100 WBC (Bld) 1.7 % Normal 0-5 [facility] Comment on above: Order Comment: Order Date: 01/30/24Order Info: 018- - CBCD Performed By: #### L 501.9520, L506.1000, L100.0100, L501.6710, L500.4100, L500.4050 ####[facility] [address] [place], [address] Erythrocyte distribution width (RBC) [Ratio] 12.5 % Normal 11.6-14.6 [facility] Comment on above: Order Comment: Order Date: 01/30/24Order Info: 018-1 - CBCD Performed By: #### L 501.9520, L506.1000, L100.0100, L501.6710, L500.4100, L500.4050 ####[facility] [address] [place], [address] Hematocrit (Bld) [Volume fraction] 40.0 % Normal 37-47 [facility] Comment on above: Order Comment: Order Date: 01/30/24Order Info: 0184-1 - CBCD Performed By: #### L 501.9520, L506.1000, L100.0100, L501.6710, L500.4100, L500.4050 ####[facility] [address] [place], [address] Hemoglobin (Bld) [Mass/Vol] 12.8 g/dL Normal 12.0-15.0 [facility] Comment on above: Order Comment: Order Date: 01/30/24Order Info: 0184- - CBCD Performed By: #### L 501.9520, L506.1000, L100.0100, L501.6710, L500.4100, L500.4050 ####[facility] [address] [place], [address] IG% 0.300 Normal 0.0-0.9 [facility] Comment on above: Order Comment: Order Date: 01/30/24Order Info: 0184- - CBCD Result Comment: IG% - Immature Granulocytes (promyelocytes, myelocytes and metamyelocytes) > 1% indicates that a LEFT SHIFT is Present. Performed By: #### L 501.9520, L506.1000, L100.0100, L501.6710, L500.4100, L500.4050 ####[facility] [address] [place], [address] Lymphocytes/100 WBC (Bld) 25.1 % Normal 19-41 [facility] Comment on above: Order Comment: Order Date: 01/30/24Order Info: 0184-1 - CBCD Performed By: #### L 501.9520, L506.1000, L100.0100, L501.6710, L500.4100, L500.4050 ####[facility] [address] [place], [address] MCH (RBC) [Entitic mass] 28.4 pg Normal 27.0-32.0 [facility] Comment on above: Order Comment: Order Date: 01/30/24Order Info: 0184-1 - CBCD Performed By: #### L 501.9520, L506.1000, L100.0100, L501.6710, L500.4100, L500.4050 ####[facility] [address] [place], [address] MCHC (RBC) [Mass/Vol] 32.0 g/dL Normal 32-36 [facility] Comment on above: Order Comment: Order Date: 01/30/24Order Info: 0184-1 - CBCD Performed By: #### L 501.9520, L506.1000, L100.0100, L501.6710, L500.4100, L500.4050 ####[facility] [address] [place], [address] MCV (RBC) [Entitic vol] 88.9 fL Normal 81-99 [facility] Comment on above: Order Comment: Order Date: 01/30/24Order Info: 018-1 - CBCD Performed By: #### L 501.9520, L506.1000, L100.0100, L501.6710, L500.4100, L500.4050 ####[facility] [address] [place], [address] Monocytes/100 WBC (Bld) 9.0 % Normal 0-10 [facility] Comment on above: Order Comment: Order Date: 01/30/24Order Info: 0184-1 - CBCD Performed By: #### L 501.9520, L506.1000, L100.0100, L501.6710, L500.4100, L500.4050 ####[facility] [address] [place], [address] Neutrophils/100 WBC (Bld) 63.1 % Normal 47-70 [facility] Comment on above: Order Comment: Order Date: 01/30/24Order Info: 0184-1 - CBCD Performed By: #### L 501.9520, L506.1000, L100.0100, L501.6710, L500.4100, L500.4050 ####[facility] [address] [place], [address] Nucleated RBC (Bld) [#/Vol] 0 10*3/uL Normal 0-5 [facility] Comment on above: Order Comment: Order Date: 01/30/24Order Info: 0184-1 - CBCD Performed By: #### L 501.9520, L506.1000, L100.0100, L501.6710, L500.4100, L500.4050 ####[facility] [address] [place], [address] Platelet mean volume (Bld) [Entitic vol] 11.6 fL Normal 6.2-12.0 [facility] Comment on above: Order Comment: Order Date: 01/30/24Order Info: 0184- - CBCD Performed By: #### L 501.9520, L506.1000, L100.0100, L501.6710, L500.4100, L500.4050 ####[facility] [address] [place], [address] Platelets (Bld) [#/Vol] 314 10*3/uL Normal 150-450 [facility] Comment on above: Order Comment: Order Date: 01/30/24Order Info: 0184- - CBCD Performed By: #### L 501.9520, L506.1000, L100.0100, L501.6710, L500.4100, L500.4050 ####[facility] [address] [place], [address] RBC (Bld) [#/Vol] 4.50 10*6/uL Normal 4.2-5.4 [facility] Comment on above: Order Comment: Order Date: 01/30/24Order Info: 0184-1 - CBCD Performed By: #### L 501.9520, L506.1000, L100.0100, L501.6710, L500.4100, L500.4050 ####[facility] [address] [place], [address] RDW SD 41.1 fl Normal 35.1-43.9 [facility] Comment on above: Order Comment: Order Date: 01/30/24Order Info: [id number] - CBCD Performed By: #### L 501.9520, L506.1000, L100.0100, L501.6710, L500.4100, L500.4050 ####[facility] [address] [place], [address] WBC (Bld) [#/Vol] 6.6 10*3/uL Normal 4.4-11.0 [facility] Comment on above: Order Comment: Order Date: 01/30/24Order Info: [id number] - CBCD Performed By: #### L 501.9520, L506.1000, L100.0100, L501.6710, L500.4100, L500.4050 ####[facility] [address] [place], [address] CRPon 01-30-2024 C-REACTIVE PROT < 2.90 Normal 0.0-3.0 [facility] Comment on above: Order Comment: Order Date: 01/30/24Order Info: [id number] - CMPOrder Info: [id number] - LIPIDOrder Info: [id number] - CRPOrder Info: [id number] - TSH Result Comment: C-Re active Protein (CRP) provides useful information for the diagnosis, therapy and monitoring of inflammatory processes and associated diseases. For the evaluation of Relative Risk for Cardiovascular Disease, a High Sensitivity CRP (HSCRP) should be ordered. Performed By: #### L 501.9520, L506.1000, L100.0100, L501.6710, L500.4100, L500.4050 ####[facility] [address] [place], [address] Comprehensive Metabolic Prof ilon 01-30-2024 Albumin [Mass/Vol] 3.5 g/dL Normal 3.2-5.0 [facility] Comment on above: Order Comment: Order Date: 01/30/24Order Info: [id number] - CMPOrder Info: [id number] - LIPIDOrder Info: [id number] - CRPOrder Info: [id number] - TSH Performed By: #### L 501.9520, L506.1000, L100.0100, L501.6710, L500.4100, L500.4050 ####[facility] [address] [place], [place], [id number] Albumin/Globulin [Mass ratio] 0.9 {ratio} Normal 0.9-2.4 [facility] Comment on above: Order Comment: Order Date: 01/30/24Order Info: 86-1 - CMPOrder Info: [id number] - LIPIDOrder Info: [id number] - CRPOrder Info: [id number] - TSH Performed By: #### L 501.9520, L506.1000, L100.0100, L501.6710, L500.4100, L500.4050 ####[facility] [address] [place], [address] ALK P 101 U/L Normal 45-117 [facility] Comment on above: Order Comment: Order Date: 01/30/24Order Info: 86-1 - CMPOrder Info: [id number] - LIPIDOrder Info: [id number] - CRPOrder Info: [id number] - TSH Performed By: #### L 501.9520, L506.1000, L100.0100, L501.6710, L500.4100, L500.4050 ####[facility] [address] [place], [place], [id number] ALT [Catalytic activity/Vol] 17 U/L Normal 13-56 [facility] Comment on above: Order Comment: Order Date: 01/30/24Order Info: 86-1 - CMPOrder Info: [id number] - LIPIDOrder Info: [id number] - CRPOrder Info: 3 - TSH Performed By: #### L 501.9520, L506.1000, L100.0100, L501.6710, L500.4100, L500.4050 ####[facility] [address] [place], [address] AST [Catalytic activity/Vol] 17 U/L Normal 15-37 [facility] Comment on above: Order Comment: Order Date: 01/30/24Order Info: 785- - CMPOrder Info: [id number] - LIPIDOrder Info: [id number] - CRPOrder Info: 3 - TSH Performed By: #### L 501.9520, L506.1000, L100.0100, L501.6710, L500.4100, L500.4050 ####[facility] [address] [place], [address] Bilirubin [Mass/Vol] 0.90 mg/dL Normal 0.20-1.00 [facility] Comment on above: Order Comment: Order Date: 01/30/24Order Info: [id number] - CMPOrder Info: - LIPIDOrder Info: [id number] - CRPOrder Info: 3 - TSH Result Comment: For patients on eltrombopag therapy, use of Dimension [place] TBIL is not recommended. Performed By: #### L 501.9520, L506.1000, L100.0100, L501.6710, L500.4100, L500.4050 ####[facility] [address] [place], [address] BUN/CRE 13.0 RATIO Normal 10-20 [facility] Comment on above: Order Comment: Order Date: 01/30/24Order Info: 07-1 - CMPOrder Info: [id number] - LIPIDOrder Info: [id number] - CRPOrder Info: 3 - TSH Performed By: #### L 501.9520, L506.1000, L100.0100, L501.6710, L500.4100, L500.4050 ####[facility] [address] [place], [address] CA,Total 9.3 mg/dL Normal 8.5-10.1 [facility] Comment on above: Order Comment: Order Date: 01/30/24Order Info: 86-1 - CMPOrder Info: [id number] - LIPIDOrder Info: [id number] - CRPOrder Info: [id number] - TSH Performed By: #### L 501.9520, L506.1000, L100.0100, L501.6710, L500.4100, L500.4050 ####[facility] [address] [place], [address] Chloride [Moles/Vol] 106 mmol/L Normal 98-107 [facility] Comment on above: Order Comment: Order Date: 01/30/24Order Info: 785- - CMPOrder Info: [id number] - LIPIDOrder Info: [id number] - CRPOrder Info: [id number] - TSH Performed By: #### L 501.9520, L506.1000, L100.0100, L501.6710, L500.4100, L500.4050 ####[facility] [address] [place], [address] CO2 [Moles/Vol] 31.0 mmol/L Normal 21.0-32.0 [facility] Comment on above: Order Comment: Order Date: 01/30/24Order Info: [id number] - CMPOrder Info: [id number] - LIPIDOrder Info: [id number] - CRPOrder Info: [id number] - TSH Performed By: #### L 501.9520, L506.1000, L100.0100, L501.6710, L500.4100, L500.4050 ####[facility] [address] [place], [address] Creatinine [Mass/Vol] 1.23 mg/dL High 0.55-1.02 [facility] Comment on above: Order Comment: Order Date: 01/30/24Order Info: 07- - CMPOrder Info: [id number] - LIPIDOrder Info: [id number] - CRPOrder Info: [id number] - TSH Result Comment: The validity of the calculated GFR GFRAA in patients over 70 years has not been determined. Clinical correlation is essential. Performed By: #### L 501.9520, L506.1000, L100.0100, L501.6710, L500.4100, L500.4050 ####[facility] [address] [place], [address] EST GFR - AA 54 mL/min Low >60 [facility] Comment on above: Order Comment: Order Date: 01/30/24Order Info: 785- - CMPOrder Info: [id number] - LIPIDOrder Info: [id number] - CRPOrder Info: [id number] - TSH Result Comment: Afri can [place] GFR Calc Performed By: #### L 501.9520, L506.1000, L100.0100, L501.6710, L500.4100, L500.4050 ####[facility] [address] [place], [address] GAP 3 Low 5-15 [facility] Comment on above: Order Comment: Order Date: 01/30/24Order Info: [id number] - CMPOrder Info: [id number] - LIPIDOrder Info: [id number] - CRPOrder Info: [id number] - TSH Performed By: #### L 501.9520, L506.1000, L100.0100, L501.6710, L500.4100, L500.4050 ####[facility] [address] [place], [address] GFR/1.73 sq M.predicted among non-blacks MDRD (S/P/Bld) [Vol rate/Area] 45 mL/min/{1.73_m2} Low >60 [facility] Comment on above: Order Comment: Order Date: 01/30/24Order Info: [id number] - CMPOrder Info: [id number] - LIPIDOrder Info: [id number] - CRPOrder Info: 3 - TSH Result Comment: Non- GFR Calc Performed By: #### L 501.9520, L506.1000, L100.0100, L501.6710, L500.4100, L500.4050 ####[facility] [address] [place], [address] Globulin (S) [Mass/Vol] 3.8 g/dL Normal 2.2-4.2 [facility] Comment on above: Order Comment: Order Date: 01/30/24Order Info: 785- - CMPOrder Info: - LIPIDOrder Info: - CRPOrder Info: [id number] - TSH Performed By: #### L 501.9520, L506.1000, L100.0100, L501.6710, L500.4100, L500.4050 ####[facility] [address] [place], [address] Glucose [Mass/Vol] 99 mg/dL Normal 74-106 [facility] Comment on above: Order Comment: Order Date: 01/30/24Order Info: [id number] - CMPOrder Info: - LIPIDOrder Info: - CRPOrder Info: 3 - TSH Performed By: #### L 501.9520, L506.1000, L100.0100, L501.6710, L500.4100, L500.4050 ####[facility] [address] [place], [address] Potassium [Moles/Vol] 3.2 mmol/L Low 3.5-5.1 [facility] Comment on above: Order Comment: Order Date: 01/30/24Order Info: [id number] - CMPOrder Info: [id number] - LIPIDOrder Info: [id number] - CRPOrder Info: [id number] - TSH Performed By: #### L 501.9520, L506.1000, L100.0100, L501.6710, L500.4100, L500.4050 ####[facility] [address] [place], [address] Sodium [Moles/Vol] 140 mmol/L Normal 136-145 [facility] Comment on above: Order Comment: Order Date: 01/30/24Order Info: [id number] - CMPOrder Info: [id number] - LIPIDOrder Info: [id number] - CRPOrder Info: [id number] - TSH Performed By: #### L 501.9520, L506.1000, L100.0100, L501.6710, L500.4100, L500.4050 ####[facility] [address] [place], [address] T PROT 7.3 g/dL Normal 6.4-8.2 [facility] Comment on above: Order Comment: Order Date: 01/30/24Order Info: 785-1 - CMPOrder Info: [id number] - LIPIDOrder Info: [id number] - CRPOrder Info: [id number] - TSH Performed By: #### L 501.9520, L506.1000, L100.0100, L501.6710, L500.4100, L500.4050 ####[facility] [address] [place], [address] Urea nitrogen [Mass/Vol] 16 mg/dL Normal 7-18 [facility] Comment on above: Order Comment: Order Date: 01/30/24Order Info: [id number] - CMPOrder Info: [id number] - LIPIDOrder Info: [id number] - CRPOrder Info: [id number] - TSH Performed By: #### L 501.9520, L506.1000, L100.0100, L501.6710, L500.4100, L500.4050 ####[facility] [address] [place], [address] Lipid Profileon 01-30-2024 Cholesterol [Mass/Vol] 206 mg/dL High 200 [facility] Comment on above: Order Comment: Order Date: 01/30/24Order Info: [id number] - CMPOrder Info: - LIPIDOrder Info: [id number] - CRPOrder Info: [id number] - TSH Result Comment: <200 mg/dL Desirable 200-240 mg/dL Borderline >240 mg/dL High Risk Performed By: #### L 501.9520, L506.1000, L100.0100, L501.6710, L500.4100, L500.4050 ####[facility] [address] [place], [address] Cholesterol in HDL [Mass/Vol] 95 mg/dL Normal [facility] Comment on above: Order Comment: Order Date: 01/30/24Order Info: [id number] - CMPOrder Info: - LIPIDOrder Info: - CRPOrder Info: 3 - TSH Result Comment: The drugs N-Acetylcysteine and Metamizole may falsely depress this assay. Reference Range HDL <40 mg/dL Low HDL Cholesterol HDL >or= 60 mg/dL High HDL Cholesterol Performed By: #### L 501.9520, L506.1000, L100.0100, L501.6710, L500.4100, L500.4050 ####[facility] [address] [place], [address] Cholesterol in LDL [Mass/Vol] 99 mg/dL Normal 0-130 [facility] Comment on above: Order Comment: Order Date: 01/30/24Order Info: [id number] - CMPOrder Info: - LIPIDOrder Info: [id number] - CRPOrder Info: [id number] - TSH Performed By: #### L 501.9520, L506.1000, L100.0100, L501.6710, L500.4100, L500.4050 ####[facility] [address] [place], [address] Cholesterol in VLDL [Mass/Vol] 12 mg/dL Normal 5-40 [facility] Comment on above: Order Comment: Order Date: 01/30/24Order Info: 785-1 - CMPOrder Info: [id number] - LIPIDOrder Info: [id number] - CRPOrder Info: [id number] - TSH Performed By: #### L 501.9520, L506.1000, L100.0100, L501.6710, L500.4100, L500.4050 ####[facility] [address] [place], [address] Triglyceride [Mass/Vol] 58 mg/dL Normal [facility] Comment on above: Order Comment: Order Date: 01/30/24Order Info: 785- - CMPOrder Info: [id number] - LIPIDOrder Info: [id number] - CRPOrder Info: [id number] - TSH Result Comment: The drugs N-Acetylcysteine and Metamizole may falsely depress this assay. Serum Triglycerides Reference Interval Normal <150 mg/dL Borderline high 150 - 199 mg/dL High 200 - 499 mg/dL Very High > or = 500 mg/dL Performed By: #### L 501.9520, L506.1000, L100.0100, L501.6710, L500.4100, L500.4050 ####[facility] [address] [place], [address] Thyroid Stim Hormone (TSH)on 01-30-2024 TSH 2.010 uIU/mL Normal 0.358-3.740 [facility] Comment on above: Order Comment: Order Date: 01/30/24Order Info: 785- - CMPOrder Info: [id number] - LIPIDOrder Info: [id number] - CRPOrder Info: [id number] - TSH Performed By: #### L 501.9520, L506.1000, L100.0100, L501.6710, L500.4100, L500.4050 ####[facility] [address] [place], [address] Vitamin D,25 Hydroxyon 01-29 Vitamin D 25-OH 54.0 ng/mL Normal [facility] Comment on above: Order Comment: Order Date: 01/30/24Order Info: [id number] - VITD25 Result Comment: Tsering min D 25(OH) Status Range Deficiency <20 ng/mL (50nmol/L) Insufficiency 20 - 30 ng/mL (50 - 75 nmol/L) Sufficiency 30 - 100 ng/mL (75 - 250 nmol/L) Toxicity >100 ng/mL (>250 nmol/L) Performed By: #### L 501.9520, L506.1000, L100.0100, L501.6710, L500.4100, L500.4050 ####[facility] [address] [place], [place], [address] SURGICAL PATHOLOGYon 023 Case Report Surgical Pathology Report Case: [id number] Authorizing Provider: Srinivasa Garza MD Collected: 10/02/2022 12:18 PM Ordering Location: Ambulatory Surgery Received: 10/02/2022 02:34 PM Pathologist: Regi Mccormick MD Specimen: DESCENDING COLON POLYP [facility] FINAL DIAGNOSIS A. Colon, descending , polypectomy: - Minute tubular adenoma. AEB/td 10/03/2022 [facility] Gross Description A. DESCENDING COLON POLYP Received in formalin is a segment of villanueva polypoid tissue measuring 0.3 x 0.3 x 0.2 cm. No stalk is present. The line of resection is noted. The specimen is not sectioned. Totally submitted in one cassette. Gross examination performed at [facility], [facility] [place] [address] FFS 10/03/2022 2:14 AM [facility] Performing Lab Diagnostic interpretation performed at [facility], [address] [facility] [address] CLIA# [id number] Road[address] Engineer: Felipe Trujillo M.D. [facility] COLONOSCOPY SCREENINGon 09-12 [facility] Colonoscopyon 10-02-2022 Colonoscopy [facility] Gastrointestinal Endoscopy Patient Name: Kriss Bobby Procedure Date: 10/02/2022 11:51 AM Date of : 1945 Admit Type: Outpatient Age: 77 Gender: Female Note Status: Finalized Procedure: Colonoscopy Indications: Screening for colorectal malignant neoplasm Providers: Srinivasa Garza MD Patient Profile: This is a 77 year old female. Refer to note in patient chart for documentation of history and physical. Last Colonoscopy: more than 10 years ago. Referring Physician: Nini Morales (pa) (Referring ), Srinivasa Garza MD (Referring MD) Medicines: Midazolam 5 mg IV, Fentanyl 100 micrograms IV Complications: No immediate complications. Requesting Provider: Procedure: Pre-Anesthesia Assessment: - Prior to the procedure, a History and Physical was performed, and patient medications and allergies were reviewed. The patient is competent. The risks and benefits of the procedure and the sedation options and risks were discussed with the patient. All questions were answered and informed consent was obtained. Patient identification and proposed procedure were verified by the physician and the nurse in the procedure room. Respiratory Examination: clear to auscultation. Prophylactic Antibiotics: The patient does not require prophylactic antibiotics. Prior Anticoagulants: The patient has taken no anticoagulant or antiplatelet agents. ASA Grade Assessment: II - A patient with mild systemic disease. After reviewing the risks and benefits, the patient was deemed in satisfactory condition to undergo the procedure. The anesthesia plan was to use moderate sedation / analgesia (conscious sedation). Immediately prior to administration of medications, the patient was re-assessed for adequacy to receive sedatives. The heart rate, respiratory rate, oxygen saturations, blood pressure, adequacy of pulmonary ventilation, and response to care were monitored throughout the procedure. The physical status of the patient was re-assessed after the procedure. After I obtained informed consent, the scope was passed under direct vision. Throughout the procedure, the patient's blood pressure, pulse, and oxygen saturations were monitored continuously. The Colonoscope was introduced through the anus and advanced to the cecum, identified by the appendiceal orifice, ileocecal valve and palpation. The colonoscopy was performed without difficulty. The patient tolerated the procedure well. The quality of the bowel preparation was good. The ileocecal valve, appendiceal orifice, and rectum were photographed. Moderate Sedation: Moderate (conscious) sedation was personally administered by the endoscopist. The following parameters were monitored: oxygen saturation, heart rate, blood pressure, and response to care. Total physician intraservice time was 18 minutes. The administration of moderate sedation was initiated at 12:03 PM. Findings: Hemorrhoids were found on perianal exam. A diminutive polyp was found in the descending colon. The polyp was sessile. The polyp was removed with a cold biopsy forceps. Resection and retrieval were complete. Multiple medium-mouthed diverticula were found in the sigmoid colon. External and internal hemorrhoids were found during perianal exam. The hemorrhoids were Grade III (internal hemorrhoids that prolapse but require manual reduction). The exam was otherwise without abnormality on direct and retroflexion views. Impression: - Hemorrhoids found on perianal exam. - One diminutive polyp in the descending colon, removed with a cold biopsy forceps. Resected and retrieved. - Diverticulosis in the sigmoid colon. - External and internal hemorrhoids. - The examination was otherwise normal on direct and retroflexion views. Recommendation: - Discharge patient to home. - Resume previous diet. - Continue present medications. - Telephone my office for pathology results in 1 week. - Patient has a contact number available for emergencies. The signs and symptoms of potential delayed complications were discussed with the patient. Return to normal activities tomorrow. Written discharge instructions were provided to the patient. - Repeat colonoscopy is recommended. The colonoscopy date will be determined after pathology results from today's exam become available for review. Procedure Code(s): --- Professional --- 30644, Colonoscopy, flexible; with biopsy, single or multiple G0500, Moderate sedation services provided by the same physician or other qualified health skin care specialist performing a gastrointestinal endoscopic service that sedation supports, requiring the presence of an independent trained observer to assist in the monitoring of the patient's level of consciousness and physiological status; initial 15 minutes of intra-service time; patient age 5 years or older (additional ti (more content not included)... Normal [facility] HISTORY PHYSICALon 3 HISTORY PHYSICAL HNO ID: [id number] Author: Srinivasa Garza MD Service: General Surgery Author Type: Physician Type: HANDP Filed: 10/02/2022 11:45 AM Note Text: HISTORY AND PHYSICAL Kriss Bobby 1945 REFERRING PHYSICIAN: Srinivasa Garza MD CHIEF COMPLAINT: Consult (colonoscopy) HPI: The patient is a 77 year old female referred for endoscopy. Kriss notes no colon complaints. She does note a history of hemorrhoids, for which she has seen Dr. Garza and is considering whether she wishes to pursue surgical hemorrhoidectomy. Patient denies any change in bowel habits, weight changes, blood in stools, black tarry stools or abdominal pain. Denies family history of colon issues. The patient notes no upper GI complaints. Kriss has undergone prior endoscopy greater than 10 years ago. Patient denies chest pain, shortness of breath or recent hospitalizations. Denies problems with sedation in the past. PAST MEDICAL HISTORY 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 (except food) Hemorrhage of rectum and anus Mixed hyperlipidemia Osteoarthrosis, unspecified whether generalized or localized, pelvic region and thigh Osteopenia Persistent disorder of initiating or maintaining sleep Personal history of colonic polyps 02/15 Colon polyps-gi bleeding Symptomatic menopausal or female climacteric states Unspecified hemorrhoids without mention of complication 02/15 Hemorrhoids Unspecified personal history presenting hazards to health PAST SURGICAL HISTORY PAST SURGICAL HISTORY Procedure Laterality Date COLONOSCOPY FLX DX W/COLLJ SPEC WHEN PFRMD 02/15/2004 Colonoscopy DILATION AND CURETTAGE DXAND/THER NONOBSTETRIC 1970 Dilation AND curettage HIP RIGHT OP SURGERY 02/2011 total hip LUMPECTOMY/RADIOTHERA PY DIAG MAMM/A10 1969' REMOVED LEFT BREAST BENIGN CURRENT MEDICATIONS Current Outpatient Medications Medication Sig MEDICATION, NON-DATABASE Tumeric MEDICATION, NON-DATABASE Occuvite cyanocobalamin, vitamin B-12, (VITAMIN B12 ORAL) Take by mouth. MEDICATION, NON-DATABASE Cosamin ASU ZINC ORAL Take by mouth. No current facility-administered medications for this visit. ALLERGIES: Dairy Aid [Lactase], Hair Dye [Other], and Poison Hubert PERSONAL HISTORY: SOCIAL HISTORY Social History Tobacco Use Smoking status: Never Smokeless tobacco: Never Vaping Use Vaping Use: Never used Substance Use Topics Alcohol use: Yes Comment: daily wine Drug use: No FAMILY HISTORY: FAMILY HISTORY FAMILY HISTORY Problem Relation Age of Onset Diabetes Mother Stroke Mother Ischemic Heart Disease Mother Heart Father HEART SURGERY 2 TIMES ONE VALVE WAS REPLACED, ONE FIXED AND BYPASS SURGERY AND A STENT Hypertension Father Hypertension Mother Lipids Father Lipids Mother Osteoporosis Mother Thyroid Mother Breast Cancer Paternal Aunt Hypertension Sister Lipids Sister REVIEW OF SYMPTOMS: The review of systems data was entered by the nurse and reviewed by oh Nursing Notes: Mary Georges RN 08/21/2022 3:29 PM Signed REVIEW OF SYSTEMS: General: The patient denies fatigue, denies weight loss, denies weight gain, denies feeling hot, and denies feelings of cold. Eyes: The patient denies glaucoma, NOTES eye injury/surgery, wears glasses or contacts. Ear/Nose/Throat: The patient NOTES allergies, denies hayfever, denies ear infections, and denies bloody noses. Cardiovascular: The patient denies chest pain, denies heart disease, denies high blood pressure,denies cardiac stent, denies prior heart attack, denies irregular heart beat, denies high cholesterol, denies poor circulation, denies heart failure, other cardiac issues, denies claudication, denies cold feet, denies peripheral arterial stent. Respiratory: The patient denies tuberculosis, denies pneumonia, denies frequent cough, denies pulmonary embolism, denies shortness of breath, and denies coughing up blood. Gastrointestinal: The patient denies difficulty swallowing, denies acid reflux, denies ulcers, denies vomiting, denies jaundice/hepatitis, denies gallbladder problems, denies black or tarry stools, NOTES hemorrhoids, NOTES bleeding from rectum, denies diverticulitis, denies constipation, NOTES diarrhea, denies loss of stool control, and denies hernias. Kidney/Bladder: The patient denies kidney stones, NOTES urine infections, and denies bloody urine. Skin: The patient denies a history of skin cancer, denies bleeding/changing moles, and denies a history of skin rash. Neurologic: The patient denies a history of epilepsy/convulsions, denies headaches, denies head/spinal injuries, and denies stroke/TIA. Psychiatric: The patient denies psychiatric medications, denies depression, and denies voices, denies substance abuse. Endocrine: The patient denies thyroid disorders, denies diabetes, and denies hormonal problems. Hematologic: The patien (more content not included)... Normal [facility] NURSING PROGon 10-02-2022 NURSING PROG HNO ID: [id number] Author: Suyapa Meadows RN Service: ? Author Type: Registered Nurse Type: Nursing Progress Note Filed: 10/02/2022 12:36 PM Note Text: Patient received in phase II via cart in left lateral position, eyes closed but open to verbal stimuli, skin warm and dry, respirations regular and unlabored, abdomen soft and non distended, denies pain or nausea. Resting comfortably on left side. Normal [facility] SURGICAL PATHOLOGYon 023 CASE REPORT Normal [facility] Comment on above: Order Comment: Speci men Type: TISSUE SPECIMEN Ordering Facility: [facility] Address: [address] [place] [address] Result Comment: Surg ical Pathology Report Case: [id number] Authorizing Provider: Srinivasa Garza MD Collected: 10/02/2022 12:18 PM Ordering Location: Ambulatory Surgery Received: 10/02/2022 02:34 PM Pathologist: Regi Mccormick MD Specimen: DESCENDING COLON POLYP Performed By: #### S #### [facility] CLIA [id number] [address] [place] [address] [place] FINAL DIAGNOSIS Normal [facility] Comment on above: Order Comment: Speci men Type: TISSUE SPECIMEN Ordering Facility: [facility] Address: [address] [place] [address] Result Comment: melissa Cramer, polypectomy: - Minute tubular adenoma. AEB/td 10/03/2022 Performed By: #### S #### [facility] CLIA [id number] [address] [place] [address] [place] FINAL PERFORMING LAB Normal [facility] Comment on above: Order Comment: Speci men Type: TISSUE SPECIMEN Ordering Facility: [facility] Address: [address] [place], [place] [id number] Result Comment: Diag nostic interpretation performed at [facility], [address] [place] [address] CLIA# [id number] Roadway Engineer: Felipe Trujillo M.D. Performed By: #### S #### [facility] CLIA [id number] [facility] [place] [address] [place] GROSS DESCRIPTION Normal [facility] Comment on above: Order Comment: Speci men Type: TISSUE SPECIMEN Ordering Facility: [facility] Address: [address] [place] [address] Result Comment: A. D ESCENDING COLON POLYP Received in formalin is a segment of villanueva polypoid tissue measuring 0.3 x 0.3 x 0.2 cm. No stalk is present. The line of resection is noted. The specimen is not sectioned. Totally submitted in one cassette. Gross examination performed at [facility], [address] [place] [address], [place] [id number] FFS 10/03/2022 2:14 AM Performed By: #### S #### [facility] CLIA [id number] [address] [place] [address] [id number] [id number] [facility] CNOVon 08-21-2022 CNOV Office Visit (TRACY ) KRISS BOBBY ([id number]) 1945 F [facility] Date Time Provider Department 08/21/22 3:30 PM NINI MORALES During your visit today, we recorded the following information about you: Temperature Pulse Blood pressure Weight 98.6 degrees 77/minute 130/78 56.2 kg Height 1.6 m Mary Georges RN 08/21/2022 3:29 PM Signed REVIEW OF SYSTEMS: General: The patient denies fatigue, denies weight loss, denies weight gain, denies feeling hot, and denies feelings of cold. Eyes: The patient denies glaucoma, NOTES eye injury/surgery, wears glasses or contacts. Ear/Nose/Throat: The patient NOTES allergies, denies hayfever, denies ear infections, and denies bloody noses. Cardiovascular: The patient denies chest pain, denies heart disease, denies high blood pressure,denies cardiac stent, denies prior heart attack, denies irregular heart beat, denies high cholesterol, denies poor circulation, denies heart failure, other cardiac issues, denies claudication, denies cold feet, denies peripheral arterial stent. Respiratory: The patient denies tuberculosis, denies pneumonia, denies frequent cough, denies pulmonary embolism, denies shortness of breath, and denies coughing up blood. Gastrointestinal: The patient denies difficulty swallowing, denies acid reflux, denies ulcers, denies vomiting, denies jaundice/hepatitis, denies gallbladder problems, denies black or tarry stools, NOTES hemorrhoids, NOTES bleeding from rectum, denies diverticulitis, denies constipation, NOTES diarrhea, denies loss of stool control, and denies hernias. Kidney/Bladder: The patient denies kidney stones, NOTES urine infections, and denies bloody urine. Skin: The patient denies a history of skin cancer, denies bleeding/changing moles, and denies a history of skin rash. Neurologic: The patient denies a history of epilepsy/convulsions, denies headaches, denies head/spinal injuries, and denies stroke/TIA. Psychiatric: The patient denies psychiatric medications, denies depression, and denies voices, denies substance abuse. Endocrine: The patient denies thyroid disorders, denies diabetes, and denies hormonal problems. Hematologic: The patient denies a history of bruising, denies bleeding, and NOTES anemia, denies blood clots. Infections: The patient denies a history of measles and mumps, denies rheumatic fever, and denies sexually transmitted diseases. Musculoskeletal: The patient denies back pain/injury, denies back problems, denies sciatica, denies knee/foot trouble, NOTES arthritis, or denies gout. When was patient's last Mammogram screening? 10 + years ago Last Colonoscopy: 10 + years ago JEANNETTE Mccormack PA-C 08/24/2022 4:25 PM Signed HISTORY AND PHYSICAL Kriss Hubbardjaycob 1945 REFERRING PHYSICIAN: Srinivasa Garza MD CHIEF COMPLAINT: Consult (colonoscopy) HPI: The patient is a 77 year old female referred for endoscopy. Kriss notes no colon complaints. She does note a history of hemorrhoids, for which she has seen Dr. Garza and is considering whether she wishes to pursue surgical hemorrhoidectomy. Patient denies any change in bowel habits, weight changes, blood in stools, black tarry stools or abdominal pain. Denies family history of colon issues. The patient notes no upper GI complaints. Kriss has undergone prior endoscopy greater than 10 years ago. Patient denies chest pain, shortness of breath or recent hospitalizations. Denies problems with sedation in the past. 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 (except food) Hemorrhage of rectum and anus Mixed hyperlipidemia Osteoarthrosis, unspecified whether generalized or localized, pelvic region and thigh Osteopenia Persistent disorder of initiating or maintaining sleep Personal history of colonic polyps 02/15 Colon polyps-gi bleeding Symptomatic menopausal or female climacteric states Unspecified hemorrhoids without mention of complication 02/15 Hemorrhoids Unspecified personal history presenting hazards to health PAST SURGICAL HISTORY Procedure Laterality Date COLONOSCOPY FLX DX W/COLLJ SPEC WHEN PFRMD 02/15/2004 Colonoscopy DILATION AND CURETTAGE DXAND/THER NONOBSTETRIC 1970 Dilation AND curettage HIP RIGHT OP SURGERY 02/2011 total hip LUMPECTOMY/RADIOTHERA PY DIAG MAMM/A10 1969' REMOVED LEFT BREAST BENIGN Current Outpatient Medications Medication Sig MEDICATION, NON-DATABASE Tumeric MEDICATION, NON-DATABASE Occuvite cyanocobalamin, vitamin B-12, (VITAMIN B12 ORAL) Take by mouth. MEDICATION, NON-DATABASE Cosamin ASU ZINC ORAL Take by mouth. No current facility-administered medications for this visit. ALLERGIES: Dairy Aid [Lactase], Hair Dye [Other], and Poison Hubert PERSONAL HISTORY: Social History Tobacco Use Smoking status: Never Smok (more content not included)... Normal [facility] CNOVon 06-07-2022 CNOV Office Visit (GENSWS ) KRISS BOBBY ([id number]) 1945 F T Date Time Provider Department 06/07/22 9:00 AM SRINIVASA GARZA GENSWS During your visit today, we recorded the following information about you: Temperature Pulse Blood pressure Weight 98 degrees 86/minute 124/80 56.4 kg Height 1.6 m Alesha Camacho RN 06/07/2022 9:32 AM Signed REVIEW OF SYSTEMS: General: The patient denies fatigue, denies weight loss, denies weight gain, denies feeling hot, and denies feelings of cold. Eyes: The patient denies glaucoma, NOTES eye injury/surgery, wears glasses or contacts. Ear/Nose/Throat: The patient NOTES allergies, denies hayfever, denies ear infections, and denies bloody noses. Cardiovascular: The patient denies chest pain, denies heart disease, denies high blood pressure,denies cardiac stent, denies prior heart attack, denies irregular heart beat, denies high cholesterol, denies poor circulation, denies heart failure, other cardiac issues, denies claudication, denies cold feet, denies peripheral arterial stent. Respiratory: The patient denies tuberculosis, denies pneumonia, denies frequent cough, denies pulmonary embolism, denies shortness of breath, and denies coughing up blood. Gastrointestinal: The patient denies difficulty swallowing, denies acid reflux, denies ulcers, denies vomiting, denies jaundice/hepatitis, denies gallbladder problems, denies black or tarry stools, NOTES hemorrhoids, NOTES bleeding from rectum, denies diverticulitis, denies constipation, NOTES diarrhea, denies loss of stool control, and denies hernias. Kidney/Bladder: The patient denies kidney stones, NOTES urine infections, and denies bloody urine. Skin: The patient denies a history of skin cancer, denies bleeding/changing moles, and denies a history of skin rash. Neurologic: The patient denies a history of epilepsy/convulsions, denies headaches, denies head/spinal injuries, and denies stroke/TIA. Psychiatric: The patient denies psychiatric medications, denies depression, and denies voices, denies substance abuse. Endocrine: The patient denies thyroid disorders, denies diabetes, and denies hormonal problems. Hematologic: The patient denies a history of bruising, denies bleeding, and NOTES anemia, denies blood clots. Infections: The patient denies a history of measles and mumps, denies rheumatic fever, and denies sexually transmitted diseases. Musculoskeletal: The patient denies back pain/injury, denies back problems, denies sciatica, denies knee/foot trouble, NOTES arthritis, or denies gout. When was patient's last Mammogram screening? 10 + years ago Last Colonoscopy: 10 + years ago Alesha Camacho RN Srinivasa Garza MD 06/07/2022 11:21 AM Signed HISTORY AND PHYSICAL Kriss Bobby 1945 REFERRING PHYSICIAN: No ref. provider found CHIEF COMPLAINT: Consult (Hemorrhoid consult) HPI: The patient is a 77 year old female with a complaint of symptomatic hemorrhoids. The patient has noted issues with hemorrhoids since 1971. She notes these are getting worse. She notes that they bulge out and they are not reducible. She occasionally notes mucus and occasional bright red blood with the hemorrhoids. She states she takes significant outs of fiber and drinks plenty of clear liquids so really has no issues with constipation. She had a colonoscopy approximately 18 years previously which demonstrated a small polyp this returned as a hyperplastic polyp. She has not had colonoscopy since that time. She does states she occasionally notes blood mixed within the stool. This is been sometime since she saw this. While she is in good health and doing well her is in memory care and she is somewhat reluctant to consider a surgical procedure at this time if her 's condition changes. 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 (except food) Hemorrhage of rectum and anus Mixed hyperlipidemia Osteoarthrosis, unspecified whether generalized or localized, pelvic region and thigh Osteopenia Persistent disorder of initiating or maintaining sleep Personal history of colonic polyps 02/15 Colon polyps-gi bleeding Symptomatic menopausal or female climacteric states Unspecified hemorrhoids without mention of complication 02/15 Hemorrhoids Unspecified personal history presenting hazards to health PAST SURGICAL HISTORY Procedure Laterality Date COLONOSCOPY FLX DX W/COLLJ SPEC WHEN PFRMD 02/15/2004 Colonoscopy DILATION AND CURETTAGE DXAND/THER NONOBSTETRIC 1970 Dilation AND curettage HIP RIGHT OP SURGERY 02/2011 total hip LUMPECTOMY/RADIOTHERA PY DIAG MAMM/A10 1969'S REMOVED LEFT BREAST BENIGN Current Outpatient Medications Medication Sig MEDICATION, NON-DATABASE Tumeric MEDICATION, NON-DATABASE Occuvite cyanocobalamin, vitamin B-12, (more content not included)... Normal [facility] Absolute lymphocyte counton 10-20-2021 Lymphocytes Auto (Unsp spec) [#/Vol] 1.89 10*3/uL 0.83-4.51 [facility] Work Phone: Basophil percentageon 2021 Basophils/100 WBC (Bld) 0.8 % 0-1 [facility] Work Phone: Bilirubin [Mass/Vol] 1.20 mg/dL 0.20-1.00 [facility] Work Phone: Comment on above: For patients on eltr ombopag therapy, use of Dimension [place] TBIL is not recommended. Chloride [Moles/Vol] 106 mmol/L 98-107 [facility] Work Phone: Cholesterol [Mass/Vol] 202 mg/dL <200 [facility] Work Phone: Comment on above: <200 mg/dL Desirable 200-240 mg/dL Borderline >240 mg/dL High Risk Eosinophils/100 WBC (Bld) 1.4 % 0-5 [facility] Work Phone: Glucose [Mass/Vol] 102 mg/dL 74-106 [facility] Work Phone: Comment on above: Fasting Glucose resu lt from 100 to 125 mg/dL suggests IMPAIRED HOMEOSTASIS per A.D.A. criteria. Neutrophils (Bld) [#/Vol] 3.8 10*3/uL 2.0-7.7 [facility] Work Phone: Neutrophils/100 WBC (Bld) 58.5 % 47-70 [facility] Work Phone: Potassium [Moles/Vol] 4.2 mmol/L 3.5-5.1 [facility] Work Phone: Protein [Mass/Vol] 7.3 g/dL 6.4-8.2 [facility] Work Phone: Sodium [Moles/Vol] 139 mmol/L 136-145 [facility] Work Phone: Triglyceride [Mass/Vol] 98 mg/dL <199 [facility] Work Phone: Comment on above: The drugs N-Acetylcy steine and Metamizole may falsely depress this assay.Serum Triglycerides Reference Interval Normal <150 mg/dL Borderline high 150 - 199 mg/dL High 200 - 499 mg/dL Very High > or = 500 mg/dL WBC (Bld) [#/Vol] 6.5 10*3/uL 4.4-11.0 [facility] Work Phone: Blood erythrocytes count (nu mber/volume)on 10-20-2021 RBC (Bld) [#/Vol] 4.59 10*6/uL 4.2-5.4 [facility] Work Phone: Blood hemoglobin measurement (mass/volume)on 10-20-2021 Hemoglobin (Bld) [Mass/Vol] 13.1 g/dL 12.0-15.0 [facility] Work Phone: Blood lymphocytes/100 leukoc yteson 10-20-2021 Lymphocytes/100 WBC (Bld) 29.0 % 19-41 [facility] Work Phone: Blood monocytes/100 leukocyt eson 10-20-2021 Monocytes/100 WBC (Bld) 10.1 % 0-10 [facility] Work Phone: Blood platelet mean volumeon 10-20-2021 Platelet mean volume (Bld) [Entitic vol] 10.8 fL 6.2-12.0 [facility] Work Phone: Determination of erythrocyte mean corpuscular volume (MCV)on 10-20-2021 MCV (RBC) [Entitic vol] 90.6 fL 81-99 [facility] Work Phone: Hematocrit Auto (Bld) [Volum e fraction]on 10-20-2021 Hematocrit (Bld) [Volume fraction] 41.6 % 37-47 [facility] Work Phone: Laboratory - Chemistry and C hemistry - challengeon 10-20-2021 ALP [Catalytic activity/Vol] 89 U/L 45-117 [facility] Work Phone: ALT [Catalytic activity/Vol] 21 U/L 13-56 [facility] Work Phone: CO2 [Moles/Vol] 28.0 mmol/L 21.0-32.0 [facility] Work Phone: Globulin (S) [Mass/Vol] 3.5 g/dL 2.2-4.2 [facility] Work Phone: Urea nitrogen/Creatinine [Mass ratio] 14.8 mg/mg 10-20 [facility] Work Phone: Laboratory - Hematology and Cell countson 10-20-2021 Erythrocyte distribution width (RBC) [Entitic vol] 41.1 fL 35.1-43.9 [facility] Work Phone: Erythrocyte distribution width (RBC) [Ratio] 12.4 % 11.6-14.6 [facility] Work Phone: Immature granulocytes/100 WBC (Bld) 0.200 % 0.0-0.9 [facility] Work Phone: Comment on above: IG% - Immature Granu locytes (promyelocytes, myelocytes and metamyelocytes) > 1% indicates that a LEFT SHIFT is Present. MCH (RBC) [Entitic mass] 28.5 pg 27.0-32.0 [facility] Work Phone: Nucleated RBC/100 WBC (Bld) [Ratio] 0 % 0-5 [facility] Work Phone: MCHC Auto (RBC) [Mass/Vol]on 10-20-2021 MCHC (RBC) [Mass/Vol] 31.5 g/dL 32-36 [facility] Work Phone: No Panel Informationon 10-20 Estimated GFR (MDRD) Amer 88 mL/min >60 [facility] Work Phone: Comment on above: GFR Calc Estimated GFR (MDRD) Non-Af Amer 73 mL/min >60 [facility] Work Phone: Comment on above: Non- GFR Calc Platelets bldon 10-20-2021 Platelets (Bld) [#/Vol] 350 10*3/uL 150-450 [facility] Work Phone: Serum or plasma albumin avani urement (mass/volume)on 10-20-2021 Albumin [Mass/Vol] 3.8 g/dL 3.2-5.0 [facility] Work Phone: Serum or plasma albumin/glob ulin mass ratioon 10-20-2021 Albumin/Globulin [Mass ratio] 1.1 {ratio} 0.9-2.4 [facility] Work Phone: Serum or plasma calcium avani urement (mass/volume)on 10-20-2021 Calcium [Mass/Vol] 8.7 mg/dL 8.5-10.1 [facility] Work Phone: Serum or plasma cholesterol in HDL measurement (mass/volume)on 10-20-2021 Cholesterol in HDL [Mass/Vol] 87 mg/dL >40 [facility] Work Phone: Comment on above: The drugs N-Acetylcy steine and Metamizole may falsely depress this assay. Reference Range HDL <40 mg/dL Low HDL Cholesterol HDL >or= 60 mg/dL High HDL Cholesterol Serum or plasma cholesterol in VLDL measurement (mass/volume)on 10-20-2021 Cholesterol in VLDL [Mass/Vol] 20 mg/dL 5-40 [facility] Work Phone: Serum or plasma creatinine m easurement (mass/volume)on 10-20-2021 Creatinine [Mass/Vol] 0.81 mg/dL 0.55-1.02 [facility] Work Phone: Comment on above: The validity of the calculated GFR & GFRAA in patients over 70 years has not been determined. Clinical correlation is essential. Serum or plasma low density lipoprotein (LDL) cholesterol measurement (mass/volume)on 10-20-2021 Cholesterol in LDL [Mass/Vol] 95 mg/dL 0-130 [facility] Work Phone: Serum or plasma urea nitroge n measurement (mass/volume)on 10-20-2021 Urea nitrogen [Mass/Vol] 12 mg/dL 7-18 [facility] Work Phone: Thin prep Papanicolaou smear with manual screeningon 10-20-2021 Thin prep Papanicolaou smear with manual screening 16 U/L 15-37 [facility] Work Phone: Thin prep Papanicolaou smear with manual screening 5 5-15 [facility] Work Phone: Vital Signs Date Time Vital Sign Value Performing Clinician Facility 10-02-2022 12:58-0400 Diastolic blood pressure 64 mm[Hg] Srinivasa Garza MD Work Phone: [facility] 10-02-2022 12:58-0400 Heart rate 53 /min Srinivasa Garza MD Work Phone: [facility] 10-02-2022 12:58-0400 Respiratory rate 16 /min Srinivasa Garza MD Work Phone: [facility] 10-02-2022 12:58-0400 SaO2% (BldA) [Mass fraction] 99 % Srinivasa Garza MD Work Phone: [facility] 10-02-2022 12:58-0400 Systolic blood pressure 129 mm[Hg] Srinivasa Garza MD Work Phone: [facility] 10-02-2022 11:45-0400 Body temperature 97.59 [degF] Srinivasa Garza MD Work Phone: [facility] 08-21-2022 15:30-0400 Body height 160 cm Nininora Menchacaf PA-C Work Phone: [facility] 08-21-2022 15:30-0400 Body temperature 98.6 [degF] Nini Carmen PA-C Work Phone: [facility] 08-21-2022 15:30-0400 Body weight 56.25 kg Nini Windthorst PA-C Work Phone: [facility] 08-21-2022 15:30-0400 Diastolic blood pressure 78 mm[Hg] Nini Windthorst PA-C Work Phone: [facility] 07-11-2023 15:30-0400 Heart rate 77 /min Nini Windthorst PA-C Work Phone: [facility] 08-21-2022 15:30-0400 SaO2% (BldA) [Mass fraction] 94 % Nini Carmen PA-C Work Phone: [facility] 08-21-2022 15:30-0400 Systolic blood pressure 130 mm[Hg] Nini Carmen PA-C Work Phone: [facility] 06-07-2022 09:25-0400 Body height 160 cm Srinivasa Garza MD Work Phone: [facility] 06-07-2022 09:25-0400 Body temperature 98.01 [degF] Srinivasa Garza MD Work Phone: [facility] 06-07-2022 09:25-0400 Body weight 56.43 kg Srinivasa Garza MD Work Phone: [facility] 06-07-2022 09:25-0400 Diastolic blood pressure 80 mm[Hg] Srinivasa Garza MD Work Phone: [facility] 06-07-2022 09:25-0400 Heart rate 86 /min Srinivasa Garza MD Work Phone: [facility] 06-07-2022 09:25-0400 SaO2% (BldA) [Mass fraction] 98 % Srinivasa Garza MD Work Phone: [facility] 06-07-2022 09:25-0400 Systolic blood pressure 124 mm[Hg] Srinivasa Garza MD Work Phone: [facility] 03-16-2022 10:03-0500 Body height 162.[address] Frederick Jose Work Phone: [facility] 03-16-2022 10:03-0500 Body mass index (BMI) [Ratio] 21.6 kg/m2 Dr. Frederick Jose Work Phone: [facility] 03-16-2022 10:03-0500 Body temperature 98.2 [degF] Dr. Frederick Jose Work Phone: [facility] 03-16-2022 10:03-0500 Body weight 57.[address] Frederick Jose Work Phone: [facility] 03-16-2022 10:03-0500 Diastolic blood pressure 82 mm[Hg] Dr. Frederick Jose Work Phone: [facility] 03-16-2022 10:03-0500 Heart rate 50 /min Dr. Frederick Jose Work Phone: [facility] 03-16-2022 10:03-0500 Respiratory rate 18 /min Dr. Frederick Jose Work Phone: [facility] 03-16-2022 10:03-0500 SaO2% (BldA) [Mass fraction] 99 % Dr. Frederick Jose Work Phone: [facility] 03-16-2022 10:03-0500 Systolic blood pressure 138 mm[Hg] Dr. Frederick Jose Work Phone: [facility] 10-28-2021 19:02-0400 Diastolic blood pressure 96 mm[Hg] [facility] Work Phone: 10-28-2021 19:02-0400 Heart rate 58 /min [facility] Work Phone: 10-28-2021 19:02-0400 Respiratory rate 14 /min [facility] Work Phone: 10-28-2021 19:02-0400 Systolic blood pressure 174 mm[Hg] [facility] Work Phone: 10-28-2021 18:33-0400 SaO2% (BldA) [Mass fraction] 98 % [facility] Work Phone: 10-28-2021 18:10-0400 Body height 160.02 cm [facility] Work Phone: 10-28-2021 18:10-0400 Body mass index (BMI) [Ratio] 22.3 kg/m2 [facility] Work Phone: 10-28-2021 18:10-0400 Body temperature 98.1 [degF] [facility] Work Phone: 10-28-2021 18:10-0400 Body weight 57.15 kg [facility] Work Phone: Encounters Encounter Date Encounter Type Care Provider Facility Start: 04-22-2024 End: 04-22-2024 ambulatory Chalon July Facility:[facility] Start: 04-01-2024 End: 04-01-2024 ambulatory Chalon July Facility:[facility] Start: 03-18-2024 End: 03-19-2024 ambulatory [facility] Facility:[facility] Start: 03-18-2024 End: 03-18-2024 ambulatory [facility] Facility:[facility] Start: 03-12-2024 End: 03-12-2024 ambulatory Chalon July Facility:[facility] Start: 03-05-2024 End: 03-05-2024 ambulatory Chalon July Facility:[facility] Start: 02-14-2024 End: 02-14-2024 ambulatory Chalon July Facility:[facility] Start: 01-30-2024 End: 01-30-2024 ambulatory Chalon July Facility:[facility] Start: 10-02-2022 End: 10-02-2022 ambulatory SRINIVASA GARZA Facility:[facility] Start: 10-02-2022 End: 10-02-2022 Subsequent hospital visit by physician Srinivasa Garza MD Work Phone: Ambulatory Surgery Comment on above: Special screening fo r malignant neoplasms, colon [Z12.11] Start: 08-21-2022 End: 08-21-2022 ambulatory SRINIVASA GARZA Facility:[facility] Start: 08-21-2022 End: 08-21-2022 Patient encounter procedure Nini Morales PA-C Work Phone: General Surgery Comment on above: Encounter for screen ing for malignant neoplasm of colon (Primary Dx); Grade III hemorrhoids Start: 06-07-2022 End: 06-07-2022 ambulatory SRINIVASA GARZA Facility:[facility] Start: 06-07-2022 End: 06-07-2022 Patient encounter procedure Srinivasa Garza MD Work Phone: General Surgery Comment on above: Grade III hemorrhoid s (Primary Dx) Start: 05-04-2022 End: 05-04-[address] Frederick Jose Work Phone: [facility] Work Phone: Start: 05-04-2022 End: 05-04-[address] Frederick Jose Work Phone: [facility]-Physical Therapy Start: 03-16-2022 End: 03-16-[address] Frederick Jose Work Phone: [facility] Start: 10-28-2021 End: 10-28-2021 Emergency department patient visit [facility]-Emergency Department Start: 10-20-2021 End: 10-20-2021 Patient encounter procedure [facility]-Laboratory Procedures Date Procedure Procedure Detail Performing Clinician Start: 10-02-2022 Level iv surg pathol ogy gross&microscopic exam Srinivasa Garza MD Work Phone: Start: 10-02-2022 Colonoscopy flx dx w /collj spec when pfrmd Nini Morales PA-C Work Phone: Start: 10-02-2022 Colonoscopy Srinivasa ann MD Work Phone: Start: 03-16-2022 Radiologic examinati on of knee Dr. Ferderick Jose Work Phone: Plan of Treatment Date Care Activity Detail Author Start: 10-03-2027 Colonoscopy Colonoscopy [facility] Start: 10-03-2027 Colorectal Cancer Screening Colorectal Cancer Screening [facility] Start: 08-10-2024 Urine microalbumin profile DTaP,Tdap,Td Vaccine (3 - Td or Tdap) [facility] Start: 10-12-2022 Covid-19 Vaccine () Covid-19 Vaccine () [facility] Start: 10-12-2022 Influenza vaccination [facility] Start: 03-16-2022 Patient referral [facility] Work Phone: Start: 02-11-2022 ADVANCE DIRECTIVE DISCUSSION ADVANCE DIRECTIVE DISCUSSION [facility] Start: 02-11-2022 DEPRESSION ASSESSMENT DEPRESSION ASSESSMENT [facility] Start: 02-09-2021 COVID-19 VACCINE (4 - Booster for Moderna series) COVID-19 VACCINE (4 - Booster for Moderna series) [facility] Start: 02-09-2021 COVID-19 VACCINE (4 - Moderna series) COVID-19 VACCINE (4 - Moderna series) [facility] Start: 01-26-2015 Urine microalbumin profile DTAP,TDAP,TD (2 - Td or Tdap) [facility] Start: 09-25-2014 DIABETES SCREEN DIABETES SCREEN [facility] Start: 09-25-2014 Diabetes Screening Diabetes Screening [facility] Start: 10-06-2010 PNEUMOCOCCAL: 65+ (2 - PCV) PNEUMOCOCCAL: 65+ (2 - PCV) [facility] Start: 07-08-2007 SHINGRIX VACCINE (2 of 3) SHINGRIX VACCINE (2 of 3) [facility] Start: 03-07-2006 Fecal Occult Blood Fecal Occult Blood [facility] Start: 2004 RSV Vaccine (1 - 1-dose 60+ series) RSV Vaccine (1 - 1-dose 60+ series) [facility] Start: 1962 ANNUAL PCP TEAM CHRONIC DISEASE VISIT ANNUAL PCP TEAM CHRONIC DISEASE VISIT [facility] Start: 1962 BP CONTROLLED (<130/80) BP CONTROLLED (<130/80) [facility] Start: 1962 HEPATITIS C SCREENING HEPATITIS C SCREENING [facility] Start: 1944 Cologuard (FIT-DNA) Cologuard (FIT-DNA) [facility] Start: [address] Colonography [facility] Start: 1945 Sigmoidoscopy Sigmoidoscopy [facility] Patient Education ED Hypertensio n, To Be Confirmed [facility] Work Phone: Patient referral [facility] Work Phone: [facility] Immunizations Immunization Date Immunization Notes Care Provider Fa cility 12-12-2021 influenza virus vacc ine, unspecified formulation Srinivasa Garza MD Work Phone: [facility] 03-22-2020 Covid (Moderna) [facility] 02-23-2020 Covid (Moderna) [facility] 12-12-2010 influenza virus vacc ine, unspecified formulation Srinivasa Garza MD Work Phone: [facility] Work Phone: 11-30-2009 influenza virus vacc ine, unspecified formulation Srinivasa Garza MD Work Phone: [facility] Work Phone: 10-06-2009 pneumococcal polysaccharide vaccine, 23 valent Srinivasa Garza MD Work Phone: [facility] Work Phone: 05-13-2007 zoster vaccine, live Srinivasa Garza MD Work Phone: [facility] Work Phone: 11-11-2005 influenza virus vacc ine, unspecified formulation Srinivasa Garza MD Work Phone: [facility] Work Phone: 01-26-2005 tetanus toxoid, redu concetta diphtheria toxoid, and acellular pertussis vaccine, adsorbed Srinivasa Garza MD Work Phone: [facility] Work Phone: Payers Date Payer Category Payer Self-pay [id number] 2021 Medicare [id number] 2014 Private Health Insurance 101 [id number] Unknown [id number] [id number] Unknown [id number] [id number] [id number] Unknown [id number] 2.16.8 [id number] Unknown [id number] 2.16.8 [id number] Unknown [id number] 2.16.8 [id number] Unknown [id number] 2.16.8 [id number] Unknown [id number] 2.16.8 [id number] Unknown [id number] [id number] [id number] Unknown [id number] [id number] Social History Date Type Detail Facility Start: 10-28-2021 End: 03-16-2022 Tobacco smoking status IAIS Unknown if ever smoked [facility] Start: 1945 Sex Assigned At Female [facility] Start: 08-13-2011 [facility] Start: 08-13-2011 Tobacco use and exposure Smokeless tobacco non-user [facility] Start: 06-07-2022 End: 12-06-2022 Alcohol intake Current drinker of alcohol (finding) [facility] Start: 1945 Sex Assigned At Not on file [facility] Start: 08-21-2022 End: 10-02-2022 History of Social function [facility] Start: 08-21-2022 End: 10-02-2022 Tobacco use panel [facility] National Score (1-100), lower number is lower risk 69 [facility] Mental Status Date Assessment Result Facility 10-28-2021 Cognitive function Level Of Cons ciousness Awake;Alert;Appropriate;Follow s Commands [facility] Work Phone: Clinical Notes 05-26-2008 to 10-02-2022 Suyapa Meadows RN - 10/02/2022 12:28 PM Srinivasa Penaloza MD - 10/02/2022 12:00 PM Srinivasa Penaloza MD - 10/02/2022 12:00 PM Nini Fraser PA-C - 08/24/2022 4:21 PM EDT Note Date & Type Note Facility 10-02-2022 Nurse Note Patient received in phase II via cart in left lateral position, eyes closed but open to verbal stimuli, skin warm and dry, respirations regular and unlabored, abdomen soft and non distended, denies pain or nausea. Resting comfortably on left side. documented in this encounter [facility] 10-02-2022 History and physical note UPDATED PROCEDURAL SEDATION HISTORY AND PHYSICAL EXAMINATION SERVICE DATE: 10/02/2022 SERVICE TIME: 11:55 AM PHYSICAL EXAM MUST BE COMPLETED ON ADMISSION PROCEDURE: Procedure Indications: The History and Physical (completed in the past 30 days) has been reviewed and the patient has been examined. The contents accurately reflect the patient's condition with the following additions or revisions since the H&P was completed. ASA Class: ASA Class:: Patient with severe systemic disease Examination indicates no changes. AIRWAY: Airway Visualization of Uvula: Yes Mouth opening greater than 2 fingerbreadths: Yes Neck Full Range of Motion: Yes LUNGS: Lungs clear to auscultation CARDIAC: Regular rhythm,Regular rate Provisional Diagnosis/Treatment Plan: screening colonoscopy SEDATION GOAL: Moderate This H&P can be found in the attached. SIGNATURE: Srinivasa Garza MD PATIENT NAME: Kriss Bobby DATE: October 02, 2022 TIME: 11:55 AM Source Note - Srinivasa Garza MD - 10/02/2022 12:00 PM EDT Images from the original note were not included. HISTORY AND PHYSICAL Kriss Bobby 1945 REFERRING PHYSICIAN: Srinivasa Garza MD CHIEF COMPLAINT: Consult (colonoscopy) HPI: The patient is a 77 year old female referred for endoscopy. Kriss notes no colon complaints. She does note a history of hemorrhoids, for which she has seen Dr. Garza and is considering whether she wishes to pursue surgical hemorrhoidectomy. Patient denies any change in bowel habits, weight changes, blood in stools, black tarry stools or abdominal pain. Denies family history of colon issues. The patient notes no upper GI complaints. Kriss has undergone prior endoscopy greater than 10 years ago. Patient denies chest pain, shortness of breath or recent hospitalizations. Denies problems with sedation in the past. PAST MEDICAL HISTORY 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 (except food) Hemorrhage of rectum and anus Mixed hyperlipidemia Osteoarthrosis, unspecified whether generalized or localized, pelvic region and thigh Osteopenia Persistent disorder of initiating or maintaining sleep Personal history of colonic polyps 02/15 Colon polyps-gi bleeding Symptomatic menopausal or female climacteric states Unspecified hemorrhoids without mention of complication 02/15 Hemorrhoids Unspecified personal history presenting hazards to health PAST SURGICAL HISTORY PAST SURGICAL HISTORY Procedure Laterality Date COLONOSCOPY FLX DX W/COLLJ SPEC WHEN PFRMD 02/15/2004 Colonoscopy DILATION & CURETTAGE DX&/THER NONOBSTETRIC 1970 Dilation & curettage HIP RIGHT OP SURGERY 02/2011 total hip LUMPECTOMY/RADIOTHERAPY DIAG MAMM/A10 1969' REMOVED LEFT BREAST BENIGN CURRENT MEDICATIONS Current Outpatient Medications Medication Sig MEDICATION, NON-DATABASE Tumeric MEDICATION, NON-DATABASE Occuvite cyanocobalamin, vitamin B-12, (VITAMIN B12 ORAL) Take by mouth. MEDICATION, NON-DATABASE Cosamin ASU ZINC ORAL Take by mouth. No current facility-administered medications for this visit. ALLERGIES: Dairy Aid [Lactase], Hair Dye [Other], and Poison Hubert PERSONAL HISTORY: SOCIAL HISTORY Social History Tobacco Use Smoking status: Never Smokeless tobacco: Never Vaping Use Vaping Use: Never used Substance Use Topics Alcohol use: Yes Comment: daily wine Drug use: No FAMILY HISTORY: FAMILY HISTORY FAMILY HISTORY Problem Relation Age of Onset Diabetes Mother Stroke Mother Ischemic Heart Disease Mother Heart Father HEART SURGERY 2 TIMES ONE VALVE WAS REPLACED, ONE FIXED AND BYPASS SURGERY AND A STENT Hypertension Father Hypertension Mother Lipids Father Lipids Mother Osteoporosis Mother Thyroid Mother Breast Cancer Paternal Aunt Hypertension Sister Lipids Sister REVIEW OF SYMPTOMS: The review of systems data was entered by the nurse and reviewed by me Nursing Notes: Mary Georges RN 08/21/2022 3:29 PM Signed REVIEW OF SYSTEMS: General: The patient denies fatigue, denies weight loss, denies weight gain, denies feeling hot, and denies feelings of cold. Eyes: The patient denies glaucoma, NOTES eye injury/surgery, wears glasses or contacts. Ear/Nose/Throat: The patient NOTES allergies, denies hayfever, denies ear infections, and denies bloody noses. Cardiovascular: The patient denies chest pain, denies heart disease, denies high blood pressure,denies cardiac stent, denies prior heart attack, denies irregular heart beat, denies high cholesterol, denies poor circulation, denies heart failure, other cardiac issues, denies claudication, denies cold feet, denies peripheral arterial stent. Respiratory: The patient denies tuberculosis, denies pneumonia, denies frequent cough, denies pulmonary embolism, denies shortness of breath, and denies coughing up blood. Gastrointestinal: The patient denies difficulty swallowing, denies acid reflux, denies ulcers, denies vomiting, denies jaundice/hepatitis, denies gallbladder problems, denies black or tarry stools, NOTES hemorrhoids, NOTES bleeding from rectum, denies diverticulitis, denies constipation, NOTES diarrhea, denies loss of stool control, and denies hernias. Kidney/Bladder: The patient denies kidney stones, NOTES urine infections, and denies bloody urine. Skin: The patient denies a history of skin cancer, denies bleeding/changing moles, and denies a history of skin rash. Neurologic: The patient denies a history of epilepsy/convulsions, denies headaches, denies head/spinal injuries, and denies stroke/TIA. Psychiatric: The patient denies psychiatric medications, denies depression, and denies voices, denies substance abuse. Endocrine: The patient denies thyroid disorders, denies diabetes, and denies hormonal problems. Hematologic: The patient denies a history of bruising, denies bleeding, and NOTES anemia, denies blood clots. Infections: The patient denies a history of measles and mumps, denies rheumatic fever, and denies sexually transmitted diseases. Musculoskeletal: The patient denies back pain/injury, denies back problems, denies sciatica, denies knee/foot trouble, NOTES arthritis, or denies gout. When was patient's last Mammogram screening? 10 + years ago Last Colonoscopy: 10 + years ago Mary Georges RN I have confirmed and edited as necessary, the PFSH and ROS obtained by others. Nini Morales PA-C PHYSICAL EXAMINATION: General: The patient is 77 year old female, well nourished, well hydrated in no acute distress. The patient is oriented to time, place, and person. VITALS: Blood pressure 130/78, pulse 77, temperature 37 C (98.6 F), height 160 cm (5' 3), weight 56.2 kg (124 lb), SpO2 94 %. Body mass index is 21.97 kg/m . HEENT: Normal cephalic, ataumatic, pupils are equally round, sclera are anicteric, mucous membranes are moist, oropharynx is clear. Neck has no masses, asymmetry or lymphadenopathy. Respiratory: Clear to auscultation and percussion. Normal respiratory excursion and pattern. Cardiac: Examination is regular rate and rhythm. Normal S1/S2 Abdominal exam: Soft, nontender, with no palpable masses. No hepatosplenomegaly. No palpable hernias. Extremities: no clubbing, cyanosis or edema. No adenopathy. LABORATORY VALUES: As Noted RADIOLOGIC STUDIES: As Noted Assessment IMPRESSION: encounter for screening colonoscopy PLAN: I have reviewed my findings with the surgeon. Will plan for lower endoscopy. We discussed the risks and benefits of the planned endoscopy. I have informed the patient that complications can occur including failure to complete the endoscopy and perforation. The patient had the opportunity to ask questions concerning the planned endoscopy. My staff has also explained the procedure to the patient in understandable terms and has given the patient printed material concerning the procedure. The patient freely consents to surgery. I plan to use Golytely bowel preparation Diagnoses: (Z12.11) Encounter for screening for malignant neoplasm of colon (primary encounter diagnosis) (K64.2) Grade III hemorrhoids I spent a total of 25 minutes on the date of the service which included preparing to see the patient, [id number] patient care, completing clinical documentation, obtaining and/or reviewing separately obtained history, performing a medically appropriate examination, counseling and educating the patient/family/caregiver, ordering medications, tests, or procedures, and communicating with other HCPs (not separately reported). Nini Morales PA-C Images from the original note were not included. HISTORY AND PHYSICAL Kriss Bobby 1945 REFERRING PHYSICIAN: Srinivasa Garza MD CHIEF COMPLAINT: Consult (colonoscopy) HPI: The patient is a 77 year old female referred for endoscopy. Kriss notes no colon complaints. She does note a history of hemorrhoids, for which she has seen Dr. Garza and is considering whether she wishes to pursue surgical hemorrhoidectomy. Patient denies any change in bowel habits, weight changes, blood in stools, black tarry stools or abdominal pain. Denies family history of colon issues. The patient notes no upper GI complaints. Kriss has undergone prior endoscopy greater than 10 years ago. Patient denies chest pain, shortness of breath or recent hospitalizations. Denies problems with sedation in the past. PAST MEDICAL HISTORY 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 (except food) Hemorrhage of rectum and anus Mixed hyperlipidemia Osteoarthrosis, unspecified whether generalized or localized, pelvic region and thigh Osteopenia Persistent disorder of initiating or maintaining sleep Personal history of colonic polyps 02/15 Colon polyps-gi bleeding Symptomatic menopausal or female climacteric states Unspecified hemorrhoids without mention of complication 02/15 Hemorrhoids Unspecified personal history presenting hazards to health PAST SURGICAL HISTORY PAST SURGICAL HISTORY Procedure Laterality Date COLONOSCOPY FLX DX W/COLLJ SPEC WHEN PFRMD 02/15/2004 Colonoscopy DILATION & CURETTAGE DX&/THER NONOBSTETRIC 1970 Dilation & curettage HIP RIGHT OP SURGERY 02/2011 total hip LUMPECTOMY/RADIOTHERAPY DIAG MAMM/A10 1969' REMOVED LEFT BREAST BENIGN CURRENT MEDICATIONS Current Outpatient Medications Medication Sig MEDICATION, NON-DATABASE Tumeric MEDICATION, NON-DATABASE Occuvite cyanocobalamin, vitamin B-12, (VITAMIN B12 ORAL) Take by mouth. MEDICATION, NON-DATABASE Cosamin ASU ZINC ORAL Take by mouth. No current facility-administered medications for this visit. ALLERGIES: Dairy Aid [Lactase], Hair Dye [Other], and Poison Hubert PERSONAL HISTORY: SOCIAL HISTORY Social History Tobacco Use Smoking status: Never Smokeless tobacco: Never Vaping Use Vaping Use: Never used Substance Use Topics Alcohol use: Yes Comment: daily wine Drug use: No FAMILY HISTORY: FAMILY HISTORY FAMILY HISTORY Problem Relation Age of Onset Diabetes Mother Stroke Mother Ischemic Heart Disease Mother Heart Father HEART SURGERY 2 TIMES ONE VALVE WAS REPLACED, ONE FIXED AND BYPASS SURGERY AND A STENT Hypertension Father Hypertension Mother Lipids Father Lipids Mother Osteoporosis Mother Thyroid Mother Breast Cancer Paternal Aunt Hypertension Sister Lipids Sister REVIEW OF SYMPTOMS: The review of systems data was entered by the nurse and reviewed by oh Nursing Notes: Mary Georges RN 08/21/2022 3:29 PM Signed REVIEW OF SYSTEMS: General: The patient denies fatigue, denies weight loss, denies weight gain, denies feeling hot, and denies feelings of cold. Eyes: The patient denies glaucoma, NOTES eye injury/surgery, wears glasses or contacts. Ear/Nose/Throat: The patient NOTES allergies, denies hayfever, denies ear infections, and denies bloody noses. Cardiovascular: The patient denies chest pain, denies heart disease, denies high blood pressure,denies cardiac stent, denies prior heart attack, denies irregular heart beat, denies high cholesterol, denies poor circulation, denies heart failure, other cardiac issues, denies claudication, denies cold feet, denies peripheral arterial stent. Respiratory: The patient denies tuberculosis, denies pneumonia, denies frequent cough, denies pulmonary embolism, denies shortness of breath, and denies coughing up blood. Gastrointestinal: The patient denies difficulty swallowing, denies acid reflux, denies ulcers, denies vomiting, denies jaundice/hepatitis, denies gallbladder problems, denies black or tarry stools, NOTES hemorrhoids, NOTES bleeding from rectum, denies diverticulitis, denies constipation, NOTES diarrhea, denies loss of stool control, and denies hernias. Kidney/Bladder: The patient denies kidney stones, NOTES urine infections, and denies bloody urine. Skin: The patient denies a history of skin cancer, denies bleeding/changing moles, and denies a history of skin rash. Neurologic: The patient denies a history of epilepsy/convulsions, denies headaches, denies head/spinal injuries, and denies stroke/TIA. Psychiatric: The patient denies psychiatric medications, denies depression, and denies voices, denies substance abuse. Endocrine: The patient denies thyroid disorders, denies diabetes, and denies hormonal problems. Hematologic: The patient denies a history of bruising, denies bleeding, and NOTES anemia, denies blood clots. Infections: The patient denies a history of measles and mumps, denies rheumatic fever, and denies sexually transmitted diseases. Musculoskeletal: The patient denies back pain/injury, denies back problems, denies sciatica, denies knee/foot trouble, NOTES arthritis, or denies gout. When was patient's last Mammogram screening? 10 + years ago Last Colonoscopy: 10 + years ago Mary Georges RN I have confirmed and edited as necessary, the PFSH and ROS obtained by others. Nini Morales PA-C PHYSICAL EXAMINATION: General: The patient is 77 year old female, well nourished, well hydrated in no acute distress. The patient is oriented to time, place, and person. VITALS: Blood pressure 130/78, pulse 77, temperature 37 C (98.6 F), height 160 cm (5' 3), weight 56.2 kg (124 lb), SpO2 94 %. Body mass index is 21.97 kg/m . HEENT: Normal cephalic, ataumatic, pupils are equally round, sclera are anicteric, mucous membranes are moist, oropharynx is clear. Neck has no masses, asymmetry or lymphadenopathy. Respiratory: Clear to auscultation and percussion. Normal respiratory excursion and pattern. Cardiac: Examination is regular rate and rhythm. Normal S1/S2 Abdominal exam: Soft, nontender, with no palpable masses. No hepatosplenomegaly. No palpable hernias. Extremities: no clubbing, cyanosis or edema. No adenopathy. LABORATORY VALUES: As Noted RADIOLOGIC STUDIES: As Noted Assessment IMPRESSION: encounter for screening colonoscopy PLAN: I have reviewed my findings with the surgeon. Will plan for lower endoscopy. We discussed the risks and benefits of the planned endoscopy. I have informed the patient that complications can occur including failure to complete the endoscopy and perforation. The patient had the opportunity to ask questions concerning the planned endoscopy. My staff has also explained the procedure to the patient in understandable terms and has given the patient printed material concerning the procedure. The patient freely consents to surgery. I plan to use Golytely bowel preparation Diagnoses: (Z12.11) Encounter for screening for malignant neoplasm of colon (primary encounter diagnosis) (K64.2) Grade III hemorrhoids I spent a total of 25 minutes on the date of the service which included preparing to see the patient, [id number] patient care, completing clinical documentation, obtaining and/or reviewing separately obtained history, performing a medically appropriate examination, counseling and educating the patient/family/caregiver, ordering medications, tests, or procedures, and communicating with other HCPs (not separately reported). Nini Morales PA-C documented in this encounter [facility] 08-24-2022 Note HNO ID: [id number] Author: Nini Morales PA-C Service: ? Author Type: Physician Blackjack Supervisor Type: Progress Notes Filed: 08/24/2022 4:25 PM Note Text: HISTORY AND PHYSICAL Kriss Bobby 1945 REFERRING PHYSICIAN: Srinivasa Garza MD CHIEF COMPLAINT: Consult (colonoscopy) HPI: The patient is a 77 year old female referred for endoscopy. Kriss notes no colon complaints. She does note a history of hemorrhoids, for which she has seen Dr. Garza and is considering whether she wishes to pursue surgical hemorrhoidectomy. Patient denies any change in bowel habits, weight changes, blood in stools, black tarry stools or abdominal pain. Denies family history of colon issues. The patient notes no upper GI complaints. Kriss has undergone prior endoscopy greater than 10 years ago. Patient denies chest pain, shortness of breath or recent hospitalizations. Denies problems with sedation in the past. 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 (except food) Hemorrhage of rectum and anus Mixed hyperlipidemia Osteoarthrosis, unspecified whether generalized or localized, pelvic region and thigh Osteopenia Persistent disorder of initiating or maintaining sleep Personal history of colonic polyps 02/15 Colon polyps-gi bleeding Symptomatic menopausal or female climacteric states Unspecified hemorrhoids without mention of complication 02/15 Hemorrhoids Unspecified personal history presenting hazards to health PAST SURGICAL HISTORY Procedure Laterality Date COLONOSCOPY FLX DX W/COLLJ SPEC WHEN PFRMD 02/15/2004 Colonoscopy DILATION AND CURETTAGE DXAND/THER NONOBSTETRIC 1970 Dilation AND curettage HIP RIGHT OP SURGERY 02/2011 total hip LUMPECTOMY/RADIOTHERAPY DIAG MAMM/A10 1969' REMOVED LEFT BREAST BENIGN Current Outpatient Medications Medication Sig MEDICATION, NON-DATABASE Tumeric MEDICATION, NON-DATABASE Occuvite cyanocobalamin, vitamin B-12, (VITAMIN B12 ORAL) Take by mouth. MEDICATION, NON-DATABASE Cosamin ASU ZINC ORAL Take by mouth. No current facility-administered medications for this visit. ALLERGIES: Dairy Aid [Lactase], Hair Dye [Other], and Poison Hubert PERSONAL HISTORY: Social History Tobacco Use Smoking status: Never Smokeless tobacco: Never Vaping Use Vaping Use: Never used Substance Use Topics Alcohol use: Yes Comment: daily wine Drug use: No FAMILY HISTORY: FAMILY HISTORY Problem Relation Age of Onset Diabetes Mother Stroke Mother Ischemic Heart Disease Mother Heart Father HEART SURGERY 2 TIMES ONE VALVE WAS REPLACED, ONE FIXED AND BYPASS SURGERY AND A STENT Hypertension Father Hypertension Mother Lipids Father Lipids Mother Osteoporosis Mother Thyroid Mother Breast Cancer Paternal Aunt Hypertension Sister Lipids Sister REVIEW OF SYMPTOMS: The review of systems data was entered by the nurse and reviewed by oh Nursing Notes: Mary Georges RN 08/21/2022 3:29 PM Signed REVIEW OF SYSTEMS: General: The patient denies fatigue, denies weight loss, denies weight gain, denies feeling hot, and denies feelings of cold. Eyes: The patient denies glaucoma, NOTES eye injury/surgery, wears glasses or contacts. Ear/Nose/Throat: The patient NOTES allergies, denies hayfever, denies ear infections, and denies bloody noses. Cardiovascular: The patient denies chest pain, denies heart disease, denies high blood pressure,denies cardiac stent, denies prior heart attack, denies irregular heart beat, denies high cholesterol, denies poor circulation, denies heart failure, other cardiac issues, denies claudication, denies cold feet, denies peripheral arterial stent. Respiratory: The patient denies tuberculosis, denies pneumonia, denies frequent cough, denies pulmonary embolism, denies shortness of breath, and denies coughing up blood. Gastrointestinal: The patient denies difficulty swallowing, denies acid reflux, denies ulcers, denies vomiting, denies jaundice/hepatitis, denies gallbladder problems, denies black or tarry stools, NOTES hemorrhoids, NOTES bleeding from rectum, denies diverticulitis, denies constipation, NOTES diarrhea, denies loss of stool control, and denies hernias. Kidney/Bladder: The patient denies kidney stones, NOTES urine infections, and denies bloody urine. Skin: The patient denies a history of skin cancer, denies bleeding/changing moles, and denies a history of skin rash. Neurologic: The patient denies a history of epilepsy/convulsions, denies headaches, denies head/spinal injuries, and denies stroke/TIA. Psychiatric: The patient denies psychiatric medications, denies depression, and denies voices, denies substance abuse. Endocrine: The patient denies thyroid disorders, denies diabetes, and denies hormonal problems. Hematologic: The patient denies a history of bruising, denies bleeding, and NOTES anemia, denies blood clots. Infections: T (more content not included)... [facility] 08-24-2022 History of Present illness Narrative HISTORY AND PHYSICAL Kriss Bobby 1945 REFERRING PHYSICIAN: Srinivasa Garza MD CHIEF COMPLAINT: Consult (colonoscopy) HPI: The patient is a 77 year old female referred for endoscopy. Kriss notes no colon complaints. She does note a history of hemorrhoids, for which she has seen Dr. Garza and is considering whether she wishes to pursue surgical hemorrhoidectomy. Patient denies any change in bowel habits, weight changes, blood in stools, black tarry stools or abdominal pain. Denies family history of colon issues. The patient notes no upper GI complaints. Kriss has undergone prior endoscopy greater than 10 years ago. Patient denies chest pain, shortness of breath or recent hospitalizations. Denies problems with sedation in the past. 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 (except food) Hemorrhage of rectum and anus Mixed hyperlipidemia Osteoarthrosis, unspecified whether generalized or localized, pelvic region and thigh Osteopenia Persistent disorder of initiating or maintaining sleep Personal history of colonic polyps 02/15 Colon polyps-gi bleeding Symptomatic menopausal or female climacteric states Unspecified hemorrhoids without mention of complication 02/15 Hemorrhoids Unspecified personal history presenting hazards to health PAST SURGICAL HISTORY Procedure Laterality Date COLONOSCOPY FLX DX W/COLLJ SPEC WHEN PFRMD 02/15/2004 Colonoscopy DILATION & CURETTAGE DX&/THER NONOBSTETRIC 1970 Dilation & curettage HIP RIGHT OP SURGERY 02/2011 total hip LUMPECTOMY/RADIOTHERAPY DIAG MAMM/A10 1969' REMOVED LEFT BREAST BENIGN Current Outpatient Medications Medication Sig MEDICATION, NON-DATABASE Tumeric MEDICATION, NON-DATABASE Occuvite cyanocobalamin, vitamin B-12, (VITAMIN B12 ORAL) Take by mouth. MEDICATION, NON-DATABASE Cosamin ASU ZINC ORAL Take by mouth. No current facility-administered medications for this visit. ALLERGIES: Dairy Aid [Lactase], Hair Dye [Other], and Poison Hubert PERSONAL HISTORY: Social History Tobacco Use Smoking status: Never Smokeless tobacco: Never Vaping Use Vaping Use: Never used Substance Use Topics Alcohol use: Yes Comment: daily wine Drug use: No FAMILY HISTORY: FAMILY HISTORY Problem Relation Age of Onset Diabetes Mother Stroke Mother Ischemic Heart Disease Mother Heart Father HEART SURGERY 2 TIMES ONE VALVE WAS REPLACED, ONE FIXED AND BYPASS SURGERY AND A STENT Hypertension Father Hypertension Mother Lipids Father Lipids Mother Osteoporosis Mother Thyroid Mother Breast Cancer Paternal Aunt Hypertension Sister Lipids Sister REVIEW OF SYMPTOMS: The review of systems data was entered by the nurse and reviewed by oh Nursing Notes: Mary Georges RN 08/21/2022 3:29 PM Signed REVIEW OF SYSTEMS: General: The patient denies fatigue, denies weight loss, denies weight gain, denies feeling hot, and denies feelings of cold. Eyes: The patient denies glaucoma, NOTES eye injury/surgery, wears glasses or contacts. Ear/Nose/Throat: The patient NOTES allergies, denies hayfever, denies ear infections, and denies bloody noses. Cardiovascular: The patient denies chest pain, denies heart disease, denies high blood pressure,denies cardiac stent, denies prior heart attack, denies irregular heart beat, denies high cholesterol, denies poor circulation, denies heart failure, other cardiac issues, denies claudication, denies cold feet, denies peripheral arterial stent. Respiratory: The patient denies tuberculosis, denies pneumonia, denies frequent cough, denies pulmonary embolism, denies shortness of breath, and denies coughing up blood. Gastrointestinal: The patient denies difficulty swallowing, denies acid reflux, denies ulcers, denies vomiting, denies jaundice/hepatitis, denies gallbladder problems, denies black or tarry stools, NOTES hemorrhoids, NOTES bleeding from rectum, denies diverticulitis, denies constipation, NOTES diarrhea, denies loss of stool control, and denies hernias. Kidney/Bladder: The patient denies kidney stones, NOTES urine infections, and denies bloody urine. Skin: The patient denies a history of skin cancer, denies bleeding/changing moles, and denies a history of skin rash. Neurologic: The patient denies a history of epilepsy/convulsions, denies headaches, denies head/spinal injuries, and denies stroke/TIA. Psychiatric: The patient denies psychiatric medications, denies depression, and denies voices, denies substance abuse. Endocrine: The patient denies thyroid disorders, denies diabetes, and denies hormonal problems. Hematologic: The patient denies a history of bruising, denies bleeding, and NOTES anemia, denies blood clots. Infections: The patient denies a history of measles and mumps, denies rheumatic fever, and denies sexually transmitted diseases. Musculoskeletal: The patient denies back pain/injury, denies back problems, denies sciatica, denies knee/foot trouble, NOTES arthritis, or denies gout. When was patient's last Mammogram screening? 10 + years ago Last Colonoscopy: 10 + years ago Mary Georges RN I have confirmed and edited as necessary, the PFSH and ROS obtained by others. Nini Morales PA-C PHYSICAL EXAMINATION: General: The patient is 77 year old female, well nourished, well hydrated in no acute distress. The patient is oriented to time, place, and person. VITALS: Blood pressure 130/78, pulse 77, temperature 37 C (98.6 F), height 160 cm (5' 3), weight 56.2 kg (124 lb), SpO2 94 %. Body mass index is 21.97 kg/m . HEENT: Normal cephalic, ataumatic, pupils are equally round, sclera are anicteric, mucous membranes are moist, oropharynx is clear. Neck has no masses, asymmetry or lymphadenopathy. Respiratory: Clear to auscultation and percussion. Normal respiratory excursion and pattern. Cardiac: Examination is regular rate and rhythm. Normal S1/S2 Abdominal exam: Soft, nontender, with no palpable masses. No hepatosplenomegaly. No palpable hernias. Extremities: no clubbing, cyanosis or edema. No adenopathy. LABORATORY VALUES: As Noted RADIOLOGIC STUDIES: As Noted Assessment IMPRESSION: encounter for screening colonoscopy PLAN: I have reviewed my findings with the surgeon. Will plan for lower endoscopy. We discussed the risks and benefits of the planned endoscopy. I have informed the patient that complications can occur including failure to complete the endoscopy and perforation. The patient had the opportunity to ask questions concerning the planned endoscopy. My staff has also explained the procedure to the patient in understandable terms and has given the patient printed material concerning the procedure. The patient freely consents to surgery. I plan to use Golytely bowel preparation Diagnoses: (Z12.11) Encounter for screening for malignant neoplasm of colon (primary encounter diagnosis) (K64.2) Grade III hemorrhoids I spent a total of 25 minutes on the date of the service which included preparing to see the patient, [id number] patient care, completing clinical documentation, obtaining and/or reviewing separately obtained history, performing a medically appropriate examination, counseling and educating the patient/family/caregiver, ordering medications, tests, or procedures, and communicating with other HCPs (not separately reported). Nini Morales PA-C documented in this encounter [facility] 08-21-2022 Nurse Note REVIEW OF SYSTEMS: General: The patient denies fatigue, denies weight loss, denies weight gain, denies feeling hot, and denies feelings of cold. Eyes: The patient denies glaucoma, NOTES eye injury/surgery, wears glasses or contacts. Ear/Nose/Throat: The patient NOTES allergies, denies hayfever, denies ear infections, and denies bloody noses. Cardiovascular: The patient denies chest pain, denies heart disease, denies high blood pressure,denies cardiac stent, denies prior heart attack, denies irregular heart beat, denies high cholesterol, denies poor circulation, denies heart failure, other cardiac issues, denies claudication, denies cold feet, denies peripheral arterial stent. Respiratory: The patient denies tuberculosis, denies pneumonia, denies frequent cough, denies pulmonary embolism, denies shortness of breath, and denies coughing up blood. Gastrointestinal: The patient denies difficulty swallowing, denies acid reflux, denies ulcers, denies vomiting, denies jaundice/hepatitis, denies gallbladder problems, denies black or tarry stools, NOTES hemorrhoids, NOTES bleeding from rectum, denies diverticulitis, denies constipation, NOTES diarrhea, denies loss of stool control, and denies hernias. Kidney/Bladder: The patient denies kidney stones, NOTES urine infections, and denies bloody urine. Skin: The patient denies a history of skin cancer, denies bleeding/changing moles, and denies a history of skin rash. Neurologic: The patient denies a history of epilepsy/convulsions, denies headaches, denies head/spinal injuries, and denies stroke/TIA. Psychiatric: The patient denies psychiatric medications, denies depression, and denies voices, denies substance abuse. Endocrine: The patient denies thyroid disorders, denies diabetes, and denies hormonal problems. Hematologic: The patient denies a history of bruising, denies bleeding, and NOTES anemia, denies blood clots. Infections: The patient denies a history of measles and mumps, denies rheumatic fever, and denies sexually transmitted diseases. Musculoskeletal: The patient denies back pain/injury, denies back problems, denies sciatica, denies knee/foot trouble, NOTES arthritis, or denies gout. When was patient's last Mammogram screening? 10 + years ago Last Colonoscopy: 10 + years ago Mary Georges RN documented in this encounter [facility] 06-07-2022 Note HNO ID: [id number] Author: Srinivasa Garza MD Service: ? Author Type: Physician Type: Progress Notes Filed: 06/07/2022 11:21 AM Note Text: HISTORY AND PHYSICAL Kriss Bobby 1945 REFERRING PHYSICIAN: No ref. provider found CHIEF COMPLAINT: Consult (Hemorrhoid consult) HPI: The patient is a 77 year old female with a complaint of symptomatic hemorrhoids. The patient has noted issues with hemorrhoids since 1971. She notes these are getting worse. She notes that they bulge out and they are not reducible. She occasionally notes mucus and occasional bright red blood with the hemorrhoids. She states she takes significant outs of fiber and drinks plenty of clear liquids so really has no issues with constipation. She had a colonoscopy approximately 18 years previously which demonstrated a small polyp this returned as a hyperplastic polyp. She has not had colonoscopy since that time. She does states she occasionally notes blood mixed within the stool. This is been sometime since she saw this. While she is in good health and doing well her is in memory care and she is somewhat reluctant to consider a surgical procedure at this time if her 's condition changes. 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 (except food) Hemorrhage of rectum and anus Mixed hyperlipidemia Osteoarthrosis, unspecified whether generalized or localized, pelvic region and thigh Osteopenia Persistent disorder of initiating or maintaining sleep Personal history of colonic polyps 02/15 Colon polyps-gi bleeding Symptomatic menopausal or female climacteric states Unspecified hemorrhoids without mention of complication 02/15 Hemorrhoids Unspecified personal history presenting hazards to health PAST SURGICAL HISTORY Procedure Laterality Date COLONOSCOPY FLX DX W/COLLJ SPEC WHEN PFRMD 02/15/2004 Colonoscopy DILATION AND CURETTAGE DXAND/THER NONOBSTETRIC 1970 Dilation AND curettage HIP RIGHT OP SURGERY 02/2011 total hip LUMPECTOMY/RADIOTHERAPY DIAG MAMM/A10 1969'S REMOVED LEFT BREAST BENIGN Current Outpatient Medications Medication Sig MEDICATION, NON-DATABASE Tumeric MEDICATION, NON-DATABASE Occuvite cyanocobalamin, vitamin B-12, (VITAMIN B12 ORAL) Take by mouth. MEDICATION, NON-DATABASE Cosamin ASU ZINC ORAL Take by mouth. diclofenac sodium (VOLTAREN) 1 % topical gel Apply moderate amount to painful areas on hands (2g) up to four times daily as needed. Don't exceed a total of 32g daily. (Patient not taking: Reported on 06/07/2022) triamcinolone acetonide (KENALOG) 0.1 % cream Apply to affected area twice daily. (Patient not taking: Reported on 06/07/2022) zolpidem (AMBIEN) 5 mg tablet Take 5 mg by mouth at bedtime as needed. (Patient not taking: Reported on 06/07/2022) estradiol (ESTRACE) 0.01 % (0.1 mg/gram) vaginal cream Use vaginally once each week. (Patient not taking: Reported on 06/07/2022) diphenhydrAMINE (BENADRYL) 25 mg capsule Take 25 mg by mouth every 6 hours as needed. (Patient not taking: Reported on 06/07/2022) clotrimazole-betamethasone (LOTRISONE) cream Apply to affected area twice daily. (Patient not taking: Reported on 06/07/2022) CALCIUM CARBONATE/VITAMIN D3 (VITAMIN D-3 ORAL) Take by mouth. (Patient not taking: Reported on 06/07/2022) hydrocortisone (ANUSOL-HC) 2.5 % rectal cream by RECTAL route twice daily. (Patient not taking: Reported on 06/07/2022) calcium carbonate (CALTRATE) 600 mg calcium (1,500 mg) tab Take 1 tablet by mouth twice daily. (Patient not taking: Reported on 06/07/2022) DAILY MULTIVITAMIN TAB Take one(1) tablet daily. (Patient not taking: Reported on 06/07/2022) No current facility-administered medications for this visit. ALLERGIES: Dairy Aid [Lactase], Hair Dye [Other], and Poison Hubert PERSONAL HISTORY: Social History Tobacco Use Smoking status: Never Smokeless tobacco: Never Vaping Use Vaping Use: Never used Substance Use Topics Alcohol use: Yes Comment: daily wine Drug use: No FAMILY HISTORY: FAMILY HISTORY Problem Relation Age of Onset Diabetes Mother Stroke Mother Ischemic Heart Disease Mother Heart Father HEART SURGERY 2 TIMES ONE VALVE WAS REPLACED, ONE FIXED AND BYPASS SURGERY AND A STENT Hypertension Father Hypertension Mother Lipids Father Lipids Mother Osteoporosis Mother Thyroid Mother Breast Cancer Paternal Aunt Hypertension Sister Lipids Sister REVIEW OF SYMPTOMS: The review of systems data was entered by the nurse and reviewed by oh Nursing Notes: Alesha Camacho RN 06/07/2022 9:32 AM Signed REVIEW OF SYSTEMS: General: The patient denies fatigue, denies weight loss, denies weight gain, denies feeling hot, and denies feelings of cold. Eyes: The patient denies glaucoma, NOTES eye injury/surgery, wears glasses or contacts. Ear/Nose/Throat: The patient NOTES allergies, denies hayfever, denies ear infections, and d (more content not included)... [facility] 06-07-2022 History of Present illness Narrative HISTORY AND PHYSICAL Kriss Bobby 1945 REFERRING PHYSICIAN: No ref. provider found CHIEF COMPLAINT: Consult (Hemorrhoid consult) HPI: The patient is a 77 year old female with a complaint of symptomatic hemorrhoids. The patient has noted issues with hemorrhoids since 1971. She notes these are getting worse. She notes that they bulge out and they are not reducible. She occasionally notes mucus and occasional bright red blood with the hemorrhoids. She states she takes significant outs of fiber and drinks plenty of clear liquids so really has no issues with constipation. She had a colonoscopy approximately 18 years previously which demonstrated a small polyp this returned as a hyperplastic polyp. She has not had colonoscopy since that time. She does states she occasionally notes blood mixed within the stool. This is been sometime since she saw this. While she is in good health and doing well her is in memory care and she is somewhat reluctant to consider a surgical procedure at this time if her 's condition changes. 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 (except food) Hemorrhage of rectum and anus Mixed hyperlipidemia Osteoarthrosis, unspecified whether generalized or localized, pelvic region and thigh Osteopenia Persistent disorder of initiating or maintaining sleep Personal history of colonic polyps 02/15 Colon polyps-gi bleeding Symptomatic menopausal or female climacteric states Unspecified hemorrhoids without mention of complication 02/15 Hemorrhoids Unspecified personal history presenting hazards to health PAST SURGICAL HISTORY Procedure Laterality Date COLONOSCOPY FLX DX W/COLLJ SPEC WHEN PFRMD 02/15/2004 Colonoscopy DILATION & CURETTAGE DX&/THER NONOBSTETRIC 1970 Dilation & curettage HIP RIGHT OP SURGERY 02/2011 total hip LUMPECTOMY/RADIOTHERAPY DIAG MAMM/A10 1969' REMOVED LEFT BREAST BENIGN Current Outpatient Medications Medication Sig MEDICATION, NON-DATABASE Tumeric MEDICATION, NON-DATABASE Occuvite cyanocobalamin, vitamin B-12, (VITAMIN B12 ORAL) Take by mouth. MEDICATION, NON-DATABASE Cosamin ASU ZINC ORAL Take by mouth. diclofenac sodium (VOLTAREN) 1 % topical gel Apply moderate amount to painful areas on hands (2g) up to four times daily as needed. Don't exceed a total of 32g daily. (Patient not taking: Reported on 06/07/2022) triamcinolone acetonide (KENALOG) 0.1 % cream Apply to affected area twice daily. (Patient not taking: Reported on 06/07/2022) zolpidem (AMBIEN) 5 mg tablet Take 5 mg by mouth at bedtime as needed. (Patient not taking: Reported on 06/07/2022) estradiol (ESTRACE) 0.01 % (0.1 mg/gram) vaginal cream Use vaginally once each week. (Patient not taking: Reported on 06/07/2022) diphenhydrAMINE (BENADRYL) 25 mg capsule Take 25 mg by mouth every 6 hours as needed. (Patient not taking: Reported on 06/07/2022) clotrimazole-betamethasone (LOTRISONE) cream Apply to affected area twice daily. (Patient not taking: Reported on 06/07/2022) CALCIUM CARBONATE/VITAMIN D3 (VITAMIN D-3 ORAL) Take by mouth. (Patient not taking: Reported on 06/07/2022) hydrocortisone (ANUSOL-HC) 2.5 % rectal cream by RECTAL route twice daily. (Patient not taking: Reported on 06/07/2022) calcium carbonate (CALTRATE) 600 mg calcium (1,500 mg) tab Take 1 tablet by mouth twice daily. (Patient not taking: Reported on 06/07/2022) DAILY MULTIVITAMIN TAB Take one(1) tablet daily. (Patient not taking: Reported on 06/07/2022) No current facility-administered medications for this visit. ALLERGIES: Dairy Aid [Lactase], Hair Dye [Other], and Poison Hubert PERSONAL HISTORY: Social History Tobacco Use Smoking status: Never Smokeless tobacco: Never Vaping Use Vaping Use: Never used Substance Use Topics Alcohol use: Yes Comment: daily wine Drug use: No FAMILY HISTORY: FAMILY HISTORY Problem Relation Age of Onset Diabetes Mother Stroke Mother Ischemic Heart Disease Mother Heart Father HEART SURGERY 2 TIMES ONE VALVE WAS REPLACED, ONE FIXED AND BYPASS SURGERY AND A STENT Hypertension Father Hypertension Mother Lipids Father Lipids Mother Osteoporosis Mother Thyroid Mother Breast Cancer Paternal Aunt Hypertension Sister Lipids Sister REVIEW OF SYMPTOMS: The review of systems data was entered by the nurse and reviewed by oh Nursing Notes: Alesha Camacho RN 06/07/2022 9:32 AM Signed REVIEW OF SYSTEMS: General: The patient denies fatigue, denies weight loss, denies weight gain, denies feeling hot, and denies feelings of cold. Eyes: The patient denies glaucoma, NOTES eye injury/surgery, wears glasses or contacts. Ear/Nose/Throat: The patient NOTES allergies, denies hayfever, denies ear infections, and denies bloody noses. Cardiovascular: The patient denies chest pain, denies heart disease, denies high blood pressure,denies cardiac stent, denies prior heart attack, denies irregular heart beat, denies high cholesterol, denies poor circulation, denies heart failure, other cardiac issues, denies claudication, denies cold feet, denies peripheral arterial stent. Respiratory: The patient denies tuberculosis, denies pneumonia, denies frequent cough, denies pulmonary embolism, denies shortness of breath, and denies coughing up blood. Gastrointestinal: The patient denies difficulty swallowing, denies acid reflux, denies ulcers, denies vomiting, denies jaundice/hepatitis, denies gallbladder problems, denies black or tarry stools, NOTES hemorrhoids, NOTES bleeding from rectum, denies diverticulitis, denies constipation, NOTES diarrhea, denies loss of stool control, and denies hernias. Kidney/Bladder: The patient denies kidney stones, NOTES urine infections, and denies bloody urine. Skin: The patient denies a history of skin cancer, denies bleeding/changing moles, and denies a history of skin rash. Neurologic: The patient denies a history of epilepsy/convulsions, denies headaches, denies head/spinal injuries, and denies stroke/TIA. Psychiatric: The patient denies psychiatric medications, denies depression, and denies voices, denies substance abuse. Endocrine: The patient denies thyroid disorders, denies diabetes, and denies hormonal problems. Hematologic: The patient denies a history of bruising, denies bleeding, and NOTES anemia, denies blood clots. Infections: The patient denies a history of measles and mumps, denies rheumatic fever, and denies sexually transmitted diseases. Musculoskeletal: The patient denies back pain/injury, denies back problems, denies sciatica, denies knee/foot trouble, NOTES arthritis, or denies gout. When was patient's last Mammogram screening? 10 + years ago Last Colonoscopy: 10 + years ago Alesha Camacho RN PHYSICAL EXAMINATION: General: The patient is 77 year old female, well nourished, well hydrated in no acute distress. The patient is oriented to time, place, and person. VITALS: Blood pressure 124/80, pulse 86, temperature 36.7 C (98 F), height 160 cm (5' 3), weight 56.4 kg (124 lb 6.4 oz), SpO2 98 %. HEENT: Normal cephalic, ataumatic, pupils are equally round, sclera are anicteric, mucous membranes are moist, oropharynx is clear. Neck has no masses, asymmetry or lymphadenopathy. Thyroid is unremarkable. Respiratory: Clear to auscultation and percussion. Normal respiratory excursion and pattern. Cardiac: Examination is regular rate and rhythm. Abdominal exam: Soft, nontender, with no palpable masses. No hepatosplenomegaly. No palpable hernias. Rectal exam: Significant hemorrhoids, grade 3 located in the all 3 quadrants-this is not reducible, otherwise no additional abnormalities or masses. Digital rectal exam - normal tone, internal hemorrhoids without other abnormalities Extremities: no clubbing, cyanosis or edema. No adenopathy. Other: LABORATORY VALUES: As Noted RADIOLOGIC STUDIES: As Noted Assessment IMPRESSION: Grade 3 prolapsing hemorrhoids, need for screening colonoscopy PLAN: Patient will consider options and if she wishes she will return to be scheduled for colonoscopy followed by operative hemorrhoidectomy the following day. Diagnoses: (K64.2) Grade III hemorrhoids (primary encounter diagnosis) Return to Clinic: The patient is instructed to follow-up with me as needed. Srinivasa Garza MD documented in this encounter [facility] 06-07-2022 Nurse Note REVIEW OF SYSTEMS: General: The patient denies fatigue, denies weight loss, denies weight gain, denies feeling hot, and denies feelings of cold. Eyes: The patient denies glaucoma, NOTES eye injury/surgery, wears glasses or contacts. Ear/Nose/Throat: The patient NOTES allergies, denies hayfever, denies ear infections, and denies bloody noses. Cardiovascular: The patient denies chest pain, denies heart disease, denies high blood pressure,denies cardiac stent, denies prior heart attack, denies irregular heart beat, denies high cholesterol, denies poor circulation, denies heart failure, other cardiac issues, denies claudication, denies cold feet, denies peripheral arterial stent. Respiratory: The patient denies tuberculosis, denies pneumonia, denies frequent cough, denies pulmonary embolism, denies shortness of breath, and denies coughing up blood. Gastrointestinal: The patient denies difficulty swallowing, denies acid reflux, denies ulcers, denies vomiting, denies jaundice/hepatitis, denies gallbladder problems, denies black or tarry stools, NOTES hemorrhoids, NOTES bleeding from rectum, denies diverticulitis, denies constipation, NOTES diarrhea, denies loss of stool control, and denies hernias. Kidney/Bladder: The patient denies kidney stones, NOTES urine infections, and denies bloody urine. Skin: The patient denies a history of skin cancer, denies bleeding/changing moles, and denies a history of skin rash. Neurologic: The patient denies a history of epilepsy/convulsions, denies headaches, denies head/spinal injuries, and denies stroke/TIA. Psychiatric: The patient denies psychiatric medications, denies depression, and denies voices, denies substance abuse. Endocrine: The patient denies thyroid disorders, denies diabetes, and denies hormonal problems. Hematologic: The patient denies a history of bruising, denies bleeding, and NOTES anemia, denies blood clots. Infections: The patient denies a history of measles and mumps, denies rheumatic fever, and denies sexually transmitted diseases. Musculoskeletal: The patient denies back pain/injury, denies back problems, denies sciatica, denies knee/foot trouble, NOTES arthritis, or denies gout. When was patient's last Mammogram screening? 10 + years ago Last Colonoscopy: 10 + years ago Alesha Camacho RN documented in this encounter [facility] 05-08-2022 Discharge summary Note Date/Time May 04, 2022 3:02pm [facility] Physical [facility] [address] [place] [address] [address] [place] [address] / REHABILITATION SERVICES DISCHARGE SUMMARY MR#: [id number] Acct: [id number] Name: RAIMUNDO BOBBY Rep #: [id number] : 1945 76 From: Cert. ELLA Gomez, OCS Referring Dr.: GERSON Walsh Status: REG RCR Insurance: [employer] [facility] SELF PAY INSURANCE It has been my pleasure to treat RAIMUNDO BOBBY referred by GERSON Freedman, with the diagnosis of STRAIN OF UNSPECIFIED MUSCLE AND TENDON ,LEFT LEG, EFFUSION LEFT KNEE for a total of 11 visit(s). Discharge Date: 05/04/22 Please see the following information for a summary of their discharge status. Subjective: Ready for d/c Left Knee Pain Intensity (Out of 10): 0 % Improvement: 80 Objective/Function: POSTURE: WFL. GAIT: ambulates with knee slight flexes reciprocal. AROM: 3-130 DEGFREES. MMT: 4/5 QUADS/HAMS Goal 1:: Patient to be I with HEP for knee Goal Progress: Goal Met Goal 2:: Patient to demonstrate by 50% or > to improve function and walking withless pain Goal Progress: Goal Met Goal 3:: Patient improve extension by 5 degrees to improve function Goal Progress: Goal Met Goal 4:: Patient to improve peak force of quads/hams/hip by 5 points to improve function Goal 5:: Patient to improve LFES score by 5 points or > to improve QOL Goal Progress: Goal Met Plan: D/C Discharge Comments: HEP If there are questions or concerns regarding this patient's physical therapy, please feel free to call me at [phone]. Thank you for the referral of thispatient. Sincerely, Shelton Flynn PT, Cert T, OCS Balance/Gait/Functional tests - Balance/Special Test Scores Lower Extremity Functional Score: 60 <Electronically signed by Ashly Li PT. ELLA, OCS> 05/08/22 1055 CC: GERSON Walsh; Dr. Frederick Jose MD ~ GREGORIO Signed [facility] Work Phone: [phone]) 387-509004-15-2009 History of Past illness Narrative* Problem Noted Date Resolved Date Routine General Medical Exam ination at a Health Care Facility 05/26/2008 08/13/2011 Overview: 05/26/08 -- established care, from Dr. Vijay Jenkins 10/06/2009 Routine Gynecological Examination 05/26/2008 08/13/2011 Overview: [facility] Sprain and strain of unspeci fied site of shoulder and upper arm 05/15/2007 05/26/2008 Hemorrhage of rectum and anus documented as of this encounter (statuses as of 06/07/2022) [facility] History of Past illness Narrative* Problem Noted Date Diagnosed Date Resolved Date Routine General Medical Exam ination at a Health Care Facility 05/26/2008 08/13/2011 Overview: 05/26/08 -- established care, from Dr. Vijay Jenkins 10/06/2009 Routine Gynecological Examination 05/26/2008 08/13/2011 Overview: [facility] Sprain and strain of unspeci fied site of shoulder and upper arm 05/15/2007 05/26/2008 Hemorrhage of rectum and anus 05/26/2008 documented as of this encounter (statuses as of 08/25/2022) [facility] History of Past illness Narrative* Problem Noted Date Diagnosed Date Resolved Date Routine General Medical Exam ination at a Health Care Facility 05/26/2008 08/13/2011 Overview: 05/26/08 -- established care, from Dr. Vijay Jenkins 10/06/2009 Routine Gynecological Examination 05/26/2008 08/13/2011 Overview: [facility] [place] Sprain and strain of unspeci fied site of shoulder and upper arm 05/15/2007 05/26/2008 Hemorrhage of rectum and anus 05/26/2008 documented as of this encounter (statuses as of 12/16/2022) [facility] noteNo assessment information availableW[facility] Work Phone: Evaluation note* Diagnosis Onset Date Resolution Status Strain of left knee and leg acute Swelling of left knee joint acute [facility] Work Phone: Evaluation note* Diagnosis Grade III hemorrhoids- Primary Unspecified hemorrhoids with other complication [facility] Diagnosis Encounter for screening for malignant neoplasm of colon- Primary Special screening for malignant neoplasms, colon Grade III hemorrhoids Unspecified hemorrhoids with other complication [facility]* Diagnosis Special screening for malignant neoplasms, colon- Primary documented in this encounter [facility] for referral (narrative)* Outpatient Procedure (Routine) - Closed Specialty Diagnoses / Procedures Referred By Tahira portillo Referred To Contact [facility] Diagnoses Special screening for malignant neoplasms, colon Procedures COLONOSCOPY SCREENING COLONOSCOPY FLX DX W/COLLJ SPEC WHEN Nini Pace PA-C [address] [place] [address] [facility] [place] [address] [place] [address] Referral ID Status Reason Start Date Expiration Date V isits Requested Visits Authorized [id number] Closed Auto-Generate d Referral 08/22/2022 08/23/2023 1 1 [facility] for visit Narrative* Outpatient Procedure (Routine) - Closed Specialty Diagnoses / Procedures Referred By Tahira portillo Referred To Contact [facility] Diagnoses Special screening for malignant neoplasms, colon Procedures COLONOSCOPY SCREENING COLONOSCOPY FLX DX W/COLLJ SPEC WHEN Nini Pace PA-C [address] [place] [address] [address] Referral ID Status Reason Start Date Expiration Date V isits Requested Visits Authorized [id number] Closed Auto-Generate d Referral 08/22/2022 08/23/2023 1 1 [facility] Chief Complaint and Reason for Visit Chief Complaint HYPERTENSION Chief Complaint LEFT KNEE PAINFUL/SW OLLEN XRAY L KNEE STRAIN/RX HERE Reason for Visit Strain of left knee and leg Swelling of left knee joint Advance Directives No Advanced Directives Records Found Advance Directive Response Recorded Date/ Time Living Will No October 28, 2021 6:34pm Power of Final Installer Inspector No October 6:34pm Summary Purpose Family History No Family History Records Found Medications Administered Section Inactive Administered Medications - up to 3 most recent administrations Medication Order MAR Action Action Date Dose Rate Site fentaNYL 50 mcg/mL 25-100 mcg injection (SUBLIMAZE) 25-100 mcg, INTRAVENOUS, DIRECTED, Starting on Sat10/02/22 at 1200, Until Sat10/02/22 at 1559, DOSING DIRECTED BY PHYSICIAN FOR PROCEDURAL SEDATION ONLY, Intraprocedure Given 10/02/2022 12:12 PM EDT 25 mcg Given by [facility] 10/02/2022 12:05 PM EDT 25 mcg Given by [facility] 10/02/2022 12:03 PM EDT 50 mcg lactated ringers iv infusion 30 mL/hr, INTRAVENOUS, CONTINUOUS, Starting on Sat10/02/22 at 1130, Until Sat10/02/22 at 1229, Preprocedure New Bag/Syringe/Bottle 10/02/2022 11:50 AM EDT 30 mL/hr 30 mL/hr midazolam 1-5 mg injection (VERSED) 1-5 mg, INTRAVENOUS, DIRECTED, Starting on Sat10/02/22 at 1200, Until Sat10/02/22 at 1559, DOSING DIRECTED BY PHYSICIAN FOR PROCEDURAL SEDATION ONLY, Intraprocedure Given 10/02/2022 12:10 PM EDT 1 mg Given by [facility] 10/02/2022 12:06 PM EDT 1 mg Given by [facility] 10/02/2022 12:03 PM EDT 2 mg Additional Source Comments Goals (unrecognized section and content) Goals may be documented in a n alternate sectionGoals may be documented in an alternate section Care Teams (unrecognized sec tion and content) Team Status: Active Member Role Status Dates Dr. Frederick Jose MD Family Provider Active Dr. Frederick Jose MD Primary Care Provider Active Team Status: Inactive Member Role Status Dates Dr. Frederick Jose MD Primary Care Provider, Referring Provider Active Gilberto NIETO PA Attending Provider Active Team Status: Inactive Member Role Status Dates Dr. Frederick Jose MD Primary Care Provider Active Dr. Chester Oro MD Attending Provider Active Team Status: Inactive Member Role Status Dates Dr. Frederick Jose MD Primary Care Provider Active GERSON Malloy Attending Provider, Referring Provi duyen Active Garnishment Specialist Relationship Specialty Start Date End Date [facility] Villanueva, [address] [facility] [address] [address] [place] [address] PCP - General Family Medicine 06/07/22 Frederick Jose MD Family Medicine 05/25/22 Garnishment Specialist Relationship Specialty Start Date End Date Jake Villanueva DO [address] [address] [place] [address] PCP - General Family Medicine 06/07/22 Frederick Jose MD Family Medicine 05/25/22 Garnishment Specialist Relationship Specialty Start Date End Date Jake iVllanueva DO [address] [facility] [address] [place] [address] PCP - General Family Medicine 06/07/22 Frederick Jose MD Family Medicine 05/25/22 Source Comments (unrecognize d section and content) In the event this informatio n is protected by the Federal Confidentiality of Alcohol and Drug Abuse Patient Records regulations: The Federal rules restrict any use of the information to criminally investigate or prosecute any alcohol or drug abuse patient.[facility] the event this information is protected by the Federal Confidentiality of Alcohol and Drug Abuse Patient Records regulations: The Federal rules restrict any use of the information to criminally investigate or prosecute any alcohol or drug abuse patient.[facility] Hospital[facility] the event this information is protected by the Federal Confidentiality of Alcohol and Drug Abuse Patient Records regulations: The Federal rules restrict any use of the information to criminally investigate or prosecute any alcohol or drug abuse patient.[facility] Reason for Visit (unrecogniz ed section and content) Reason Comments Consult Hemorrhoid consult Reason Comments Consult colonoscopy INFORMATION SOURCE (unrecogn ized section and content) DATE CREATED AUTHOR 10/05/2022 [facility] DATE CREATED AUTHOR AUTHOR'S SHAYNE AGUILAR 04/25/2024 [facility] FOR RECORDS PERTAINING TO PATIENTS WHO ARE OR HAVE BEEN ENROLLED IN A CHEMICAL DEPENDENCY/SUBSTANCEABUSE PROGRAM, SOME INFORMATION MAY BE OMITTED. This clinical summary was aggregated from multiple sources. Caution should be exercised in using it in the provision of clinical care. This summary normalizes information from multiple sources, and as a consequence, information in this document may materially change the coding, format and clinical context of patient data. In addition, data may be omitted in some cases. CLINICAL DECISIONS SHOULD BE BASED ON THE PRIMARY CLINICAL RECORDS. [employer] [facility]. provides no warranty or guarantee of the accuracy or completeness of information in this document.
[2024-07-28 14:25] LABS: ALB/GLOB Ratio 1.5 RATIO (0.9-2.4); AST(SGOT) 19 U/L (<=31); Alanine Aminotransfer ALT/SGPT 13 U/L (<=34); Albumin, Serum 3.9 g/dL (3.4-4.8); Alkaline Phosphatase 85 U/L (35-104); Anion Gap 10 (5-15); BUN 21 mg/dL (4-19); BUN/Creat Ratio 24.4 RATIO (10-20); Calcium,Total 8.8 mg/dL (7.6-11.0); Carbon Dioxide 24.3 mmol/L (21.0-32.0); Chloride 108 mmol/L (98-108); Cholesterol 195 mg/dL (<=200); Creatinine, Serum 0.85 mg/dL (0.70-1.20); EST Glomerular Filtration Rate 70 (>60); Globulin 2.7 g/dL (2.2-4.2); Glucose 88 mg/dL (70-99); High Density Lipoprotein 85 mg/dL; Low Density Lipoprotein Calc. 101 mg/dL; Potassium 3.6 mmol/L (3.3-5.1); Protein, Total 6.6 g/dL (5.9-8.4); Sodium Level 142 mmol/L (133-145); Total Bilirubin 0.82 mg/dL (0.00-1.30); Triglycerides 48 mg/dL; Very Low Density Lipoprotein 10 mg/dL (5-40)
== END | disposition home or self-care (01) ==
LOC: MFPLAB 08:34
PROVIDERS: PCP Family Medicine; Referring Provider Family Medicine; Visit Provider Family Medicine
DX: E87.6 Hypokalemia (principal); Z13.220 Encounter for screening for lipoid disorders
CPT/HCPCS: 36415; 80053; 80061